=== PATIENT | male | born 1940 | race Caucasian/White ===

== ENCOUNTER 2019-05-30 09:44 | Outpatient (CLI) | payer MEDICARE, SELFPAY ==
[2019-05-30 10:04] LABS: Appearance Urine Clear (Clear); Bilirubin Urine Negative (Negative); Color Urine Yellow (Yellow); Glucose Urine UA Negative (Negative); Ketones Urine Negative (Negative); Leukocyte Esterase Ur Negative LEU/UL (Negative); Nitrate Urine Negative (Negative); Protein Urine Trace mg/dL (Negative); Urobilinogen Urine 0.2 mg/dL (<2.0)
[2019-05-30 10:10] LABS: Add Urine Microscopic? YES; Blood Urine Trace-Intact (Negative)
[2019-05-30 10:11] LABS: Mucus Urine Rare /lpf; RBC Urine 0-2 /hpf (0-2); Specific Grav Ur 1.022 (1.001-1.035); WBC Urine 0-3 /hpf
== END 2019-05-30 09:45 | disposition home or self-care (01) ==
PROVIDERS: PCP Internal Medicine; Visit Provider Nurse Practitioner
DX: R30.0 Dysuria (principal)
CPT/HCPCS: 81001

== ENCOUNTER 2019-08-24 10:10 | Outpatient (CLI) | payer MEDICARE, SELFPAY ==
[2019-08-24 11:21] LABS: Blood Urea Nitrogen 14 mg/dL (9-20); Calcium 9.1 mg/dL (8.4-10.2); Carbon Dioxide 31 mmol/L (22-30); Chloride 101 mmol/L (98-107); Estimated Glomerular Filt Rate > 60; Glucose 117 mg/dL (75-110); Potassium 4.2 mmol/L (3.4-5.0); Sodium 137 mmol/L (137-145)
[2019-08-24 11:44] LABS: Vitamin D 25 Hydroxy 50.9 ng/mL
== END 2019-08-24 10:11 | disposition home or self-care (01) ==
LOC: ANHLAB 10:12
PROVIDERS: PCP Internal Medicine; Visit Provider Nurse Practitioner
DX: E55.9 Vitamin D deficiency, unspecified (principal); I10 Essential (primary) hypertension
CPT/HCPCS: 36415; 80048; 82306

== ENCOUNTER 2020-01-24 09:02 | Outpatient (CLI) | payer MEDICARE, SELFPAY ==
[2020-01-24 09:29] LABS: Alanine Aminotransferase 19 U/L (4-50); Albumin Level 4.2 g/dL (3.5-5.1); Alkaline Phosphatase 68 U/L (38-126); Anion Gap 4 mmol/L (8-16); Aspartate Amino Transferase 23 U/L (17-59); Bilirubin,Total 0.5 mg/dL (0.2-1.3); Blood Urea Nitrogen 23 mg/dL (9-20); Calcium 9.1 mg/dL (8.4-10.2); Carbon Dioxide 34 mmol/L (22-30); Chloride 102 mmol/L (98-107); Cholesterol 229 mg/dL (0-200); Estimated Glomerular Filt Rate > 60; Glucose 92 mg/dL (75-110); HDL Direct 37 mg/dL; Sodium 140 mmol/L (137-145); Triglycerides 184 mg/dL (<150)
[2020-01-24 09:40] LABS: LDL Cholesterol Direct 171 mg/dL
[2020-01-24 10:15] LABS: Vitamin D 25 Hydroxy 52.2 ng/mL
== END 2020-01-24 09:03 | disposition home or self-care (01) ==
PROVIDERS: PCP Internal Medicine; Visit Provider Internal Medicine
DX: E78.5 Hyperlipidemia, unspecified (principal); Z51.81 Encounter for therapeutic drug level monitoring; Z79.899 Other long term (current) drug therapy; I10 Essential (primary) hypertension
CPT/HCPCS: 36415; 80053; 80061; 82306

== ENCOUNTER 2020-05-19 09:31 | Emergency (ER) | payer MEDICARE, SELFPAY ==
--- NOTE | ~2020-05-19 | XR_ITS ---
EXAMINATION: XR lumbar spine min 4V DATE: 05/19/2020 10:19 INDICATION: Back pain. TECHNIQUE: 5 views of lumbar spine were obtained. COMPARISON: Lumbar spine radiographs 09/08/2016 FINDINGS: There is 3 mm retrolisthesis of L1 on L2. There are changes of anterior fusion procedures a t L2-L3 and L3-L4 with interbody devices. There is mildly decreased disc height at L4-L5 and L5-S1 wi th disc calcifications. There is mildly decreased disc height at L1-L2. There are laminectomies at L3 and L5. There are changes of posterior fusion procedure from L3 to S1 with solid posterolateral bone graft on either side. There is multilevel moderate facet joint hypertrophy. There are surgical clips in the retroperitoneum. IMPRESSION: 1. Mild lumbar spondylosis. 2. Anterior fusion procedures at L2-L3 and L3-L4. Posterior fusion procedure from L3 to S1. Reviewed, dictated and finalized at location A. X DIPPER IMPRESSION: 1. Mild lumbar spondylosis. 2. Anterior fusion procedures at L2-L3 and L3-L4. Posterior fusion procedure fr om L3 to S1.
[2020-05-19 09:37] VITALS: BP 201/66; PULSE 78; RESP 20; TEMP 36.6; O2SAT 99
[2020-05-19 09:50] LABS: Add Urine Microscopic? NO; Appearance Urine Clear (Clear); Bilirubin Urine Negative (Negative); Blood Urine Negative (Negative); Color Urine Straw (Yellow); Glucose Urine UA Negative (Negative); Ketones Urine Negative (Negative); Leukocyte Esterase Ur Negative LEU/UL (Negative); Nitrate Urine Negative (Negative); Protein Urine Negative (Negative); Specific Grav Ur 1.009 (1.001-1.035); Squamous Epithelial Cell Urine Rare /hpf (Few); Urobilinogen Urine Negative mg/dL (<2.0); WBC Urine 0-3 /hpf
[2020-05-19] MEDS: traMADol HCL (*CRX) 50 MG TABLET PO (10:31)
--- NOTE | 2020-05-19 11:06 | ED.BACK ---
HPI - Back Pain/Injury General Chief Complaint: Urogenital-Male Stated Complaint: Back Pain, Frequent Urination Time Seen by Provider: 05/19/20 09:42 Source: patient Mode of arrival: ambulatory Limitations: no limitations History of Present Illness HPI Narrative: 79-year-old with history of chronic back pain, s/p lumbar fusion several years patient states that his pain has been quite intense since this morning has taken Tylenol with no relief patient also mentions he was shaking inside his body patient has seen pain management in the past. No history of bladder or bowel incontinence denies any urinary symptoms. MD elicited complaint: back pain Pertinent past history: prior back pain Timing: constant Severity: moderate Similar Symptoms Previously: Yes Quality: aching Location: lumbar spine Radiation: none Exacerbating factors: none Relieving factors: none Related Data Home Medications Medication Instructions Recorded Confirmed omeprazole 40 mg capsule,delayed 40 mg PO DAILY 01/21/19 02/22/20 release Allergies Allergy/AdvReac Type Severity Reaction Status Date / Time No Known Allergies Allergy Verified 05/19/20 09:39 Review of Systems Review of Systems: All systems reviewed & are unremarkable except as noted in HPI and below Constitutional: Constitutional: Reports no additional constitutional complaints Eyes: Eyes: Reports no additional eye complaints ENT: Reports system reviewed and no additional complaints, except as documented Cardiovascular: Cardiovascular: Reports no additional cardiovascular complaints Respiratory: Respiratory: Reports no additional respiratory complaints Gastrointestinal: Gastrointestinal: Reports no additional gastrointestinal complaints Musculoskeletal: Musculoskeletal: Reports as per HPI Integumentary/Breasts: Skin/Breast: Reports system reviewed and no additional complaints, except as docu PMFSH Past Medical History Medical History Rotator cuff arthropathy Surgical History Surgical History H/O colonoscopy (~2007) H/O prostate biopsy History of esophagogastroduodenoscopy (EGD) History of lumbar discectomy (~2005) History of lumbar discectomy (~2003) Family History Family History Father Family history of malignant neoplasm Patient's father is Mother Family history of malignant neoplasm Patient's mother is Social History Social History Smoking status: Former smoker Alcohol intake: never Gender identity (if verbalized by the patient): Male Exam Narrative: Exam Narrative: GENERAL: Well-appearing, well-nourished, and in no acute distress. HEAD: Normocephalic, atraumatic. EYES: PERRLA and EOMI.. NECK: Supple. CHEST: Clear to auscultation. No respiratory distress. HEART: Regular rate and rhythm. No murmur heard. Normal peripheral pulses. ABDOMEN: Soft, nontender, nondistended, normal active bowel sounds. EXTREMITIES: Normal range of motion. No edema. SKIN: Warm, dry, no rash. NEURO: No focal deficits. Alert and oriented x3. PSYCH: Normal mood and affect. Course Course Emergency Course: Inform patient about his x-ray and urine analysis. I advised him to continue to he states he will get, take pain medication I advised him to follow-up with his pain management doctor for long-term benefit patient states that his pain is slightly improved with tramadol. Patient states that he cannot take more than Tylenol as he has stomach issues. Vital Signs Vital signs: Vital Signs Temperature 36.6 C 05/19/20 09:37 Pulse Rate 78 05/19/20 09:37 Respiratory Rate 20 05/19/20 09:37 Blood Pressure 201/66 H 05/19/20 09:37 Pulse Oximetry 99 05/19/20 09:37 Temperature 36.6 C 05/19/20 09:37 Pulse Rate
[2020-05-19 11:40] VITALS: BP 188/90; PULSE 80; RESP 20; O2SAT 99
== END 2020-05-19 11:43 | disposition home or self-care (01) ==
PROVIDERS: Emergency Provider Family Medicine; PCP Internal Medicine
DX: M54.5 Low back pain (principal); G89.29 Other chronic pain; Z98.1 Arthrodesis status
CPT/HCPCS: 72110; 81003; 99283; A9270

== ENCOUNTER 2020-08-03 14:26 | Outpatient (CLI) | payer MEDICARE, SELFPAY ==
[2020-08-03 14:49] LABS: Add Urine Microscopic? YES; Appearance Urine Clear (Clear); Bilirubin Urine Negative (Negative); Blood Urine Negative (Negative); Color Urine Yellow (Yellow); Glucose Urine UA Negative (Negative); Ketones Urine Negative (Negative); Leukocyte Esterase Ur Negative LEU/UL (Negative); Mucus Urine Rare /lpf; Nitrate Urine Negative (Negative); Protein Urine 1+ mg/dL (Negative); RBC Urine 0-2 /hpf (0-2); Specific Grav Ur 1.019 (1.001-1.035); Squamous Epithelial Cell Urine Rare /hpf (Few); Urobilinogen Urine Negative mg/dL (<2.0); WBC Urine 0-3 /hpf
== END 2020-08-03 14:27 | disposition home or self-care (01) ==
PROVIDERS: PCP Internal Medicine; Visit Provider Nurse Practitioner
DX: M54.5 Low back pain (principal)
CPT/HCPCS: 81001

== ENCOUNTER 2020-08-13 06:40 | Outpatient (CLI) | payer MEDICARE, SELFPAY ==
[2020-08-13 07:50] LABS: Alanine Aminotransferase 14 U/L (4-50); Albumin Level 3.9 g/dL (3.5-5.1); Alkaline Phosphatase 64 U/L (38-126); Anion Gap 5 mmol/L (8-16); Aspartate Amino Transferase 21 U/L (17-59); Bilirubin,Total 0.6 mg/dL (0.2-1.3); Blood Urea Nitrogen 15 mg/dL (9-20); Calcium 9.2 mg/dL (8.4-10.2); Carbon Dioxide 30 mmol/L (22-30); Chloride 107 mmol/L (98-107); Cholesterol 234 mg/dL (0-200); Estimated Glomerular Filt Rate > 60; Glucose 90 mg/dL (75-110); HDL Direct 52 mg/dL; Potassium 4.1 mmol/L (3.4-5.0); Sodium 142 mmol/L (137-145); Triglycerides 73 mg/dL (<150)
[2020-08-13 08:01] LABS: LDL Cholesterol Direct 126 mg/dL
== END 2020-08-13 06:41 | disposition home or self-care (01) ==
PROVIDERS: PCP Internal Medicine; Visit Provider Nurse Practitioner
DX: E55.9 Vitamin D deficiency, unspecified (principal); E78.5 Hyperlipidemia, unspecified; E78.00 Pure hypercholesterolemia, unspecified
CPT/HCPCS: 36415; 80053; 80061; 82306

== ENCOUNTER 2020-09-24 01:41 | Day surgery (SDC) | payer MEDICARE, SELFPAY ==
[2020-09-11 09:28] VITALS: BMI 28.0
[2020-09-24 07:53] VITALS: BP 168/62; PULSE 50; RESP 18; TEMP 36; O2SAT 100
--- NOTE | 2020-09-24 07:53 | PM.HPGS ---
History of Present Illness History of Present Illness Consent: Risks, benefits, and alternatives have been discussed and questions answered. Patient agrees to proceed with procedure. Chief complaint: blood in stool Narrative: Radames Grider is a 79 year old male With recurrent rectal bleeding. He also suffers from severe constipation Review of Systems Review of Systems: All systems reviewed & are unremarkable except as noted in HPI and below PMFSH Past Medical History Medical History (Updated 09/24/20 @ 07:54 by Rigo Lubin MD) Rotator cuff arthropathy Surgical History Surgical History H/O colonoscopy (~2007) H/O prostate biopsy History of esophagogastroduodenoscopy (EGD) History of lumbar discectomy (~2005) History of lumbar discectomy (~2003) Family History Family History Father Family history of malignant neoplasm Patient's father is Mother Family history of malignant neoplasm Patient's mother is Social History Social History Smoking packs per day: 0.5 Smoking cigarettes per day: 10.0 Years smoked: 20 Smoking pack-years: 10.00 Smoking status: Former smoker Tobacco type: cigarettes Second hand tobacco smoke exposure: Yes Smoking end date: 03/09/84 Alcohol intake: never Living arrangements: alone Gender identity (if verbalized by the patient): Male Spiritual care concerns: No Meds Home Medications and Allergies Home Medications Medication Instructions Recorded Confirmed Type alprazolam 0.25 mg tablet 0.25 mg PO DAILY PRN #30 tablet 07/18/20 09/11/20 Rx lisinopril 10 0.5 tablet PO DAILY tablet 08/03/20 09/11/20 History mg-hydrochlorothiazide 12.5 mg tablet acetaminophen 650 mg PO Q4-6H PRN 09/11/20 09/24/20 History tramadol 50 mg tablet 50 mg PO Q8H PRN #60 tablet 09/11/20 09/24/20 Rx Allergies Allergy/AdvReac Type Severity Reaction Status Date / Time No Known Allergies Allergy Verified 09/24/20 07:51 Exam Const: General: alert Orientation/consciousness: patient oriented x3 Resp: Auscultation: clear to auscultation bilaterally Cardio: Rhythm: regular rhythm GI: GI Palp: Yes Soft to palpation and No Tenderness to palpation present (GI) Neuro: General: patient oriented x3 Assessment and Plan Assessment and plan (1) Blood in stool: Code(s): K92.1 - Melena Status: Acute Assessment and Plan: Colonoscopy with possible biopsy or polypectomy or cautery or injection of substances.
[2020-09-24] MEDS: LACTATED RINGERS 1,000 ML 150 ML IV CONT (08:05)
--- NOTE | 2020-09-24 08:40 | WPDANESEPPF ---
Anes - Initial Pre Proc Eval Procedure: Operation Date: 09/24/20 08:30 Proposed Procedures p Colonoscopy - Rigo Lubin MD Date/Time: 09/24/20 08:40 Surgeon: Rigo Lubin MD Pre Op Diagnosis: blood in stool Patient Data Age: 79 Gender: M Height: 1.68 m Weight: 81.1 kg Last Vital Signs Temp 96.8 F L 09/24/20 07:53 Pulse 50 L 09/24/20 07:53 Resp 18 09/24/20 07:53 BP 168/62 H 09/24/20 07:53 Pulse Ox 100 09/24/20 07:53 Allergies Allergy/AdvReac Type Severity Reaction Status Date / Time No Known Allergies Allergy Verified 09/24/20 07:51 Home Medications Medication Instructions Recorded Confirmed Type alprazolam 0.25 mg tablet 0.25 mg PO DAILY PRN #30 tablet 07/18/20 09/11/20 Rx lisinopril 10 0.5 tablet PO DAILY tablet 08/03/20 09/11/20 History mg-hydrochlorothiazide 12.5 mg tablet acetaminophen 650 mg PO Q4-6H PRN 09/11/20 09/24/20 History tramadol 50 mg tablet 50 mg PO Q8H PRN #60 tablet 09/11/20 09/24/20 Rx Patient hx anesthesia problems: none Family hx anesthesia problems: none PMFSH Past Medical History Medical History (Updated 09/24/20 @ 07:54 by Rigo Lubin MD) Rotator cuff arthropathy Surgical History Surgical History H/O colonoscopy (~2007) H/O prostate biopsy History of esophagogastroduodenoscopy (EGD) History of lumbar discectomy (~2005) History of lumbar discectomy (~2003) Family History Family History Father Family history of malignant neoplasm Patient's father is Mother Family history of malignant neoplasm Patient's mother is Social History Social History Smoking packs per day: 0.5 Smoking cigarettes per day: 10.0 Years smoked: 20 Smoking pack-years: 10.00 Smoking status: Former smoker Tobacco type: cigarettes Second hand tobacco smoke exposure: Yes Smoking end date: 03/09/84 Alcohol intake: never Living arrangements: alone Gender identity (if verbalized by the patient): Male Spiritual care concerns: No Anes - Eval Final PreProcedure Day of Procedure 09/24/20 08:40 Patient weight: overweight Heart: bradycardia Lungs: clear to auscultation Airway: Mallampati scale class II Neurological: alert and oriented Last oral intake: >/= 8 hours ASA classification: III Emergent: no Anesthetic plan: proceed Anesthesia type and monitoring: general GIVS and standard monitoring Informed Consent: The patient's anesthetic plan and its attendant risks and benefits were discussed with the patient/family/POA. Questions were solicited and answers provided to the satisfaction of the patient/family/POA.
[2020-09-24 09:06] VITALS: BP 85/38; PULSE 53; RESP 16; O2SAT 97
[2020-09-24 09:16] VITALS: BP 125/55; PULSE 52; RESP 21; O2SAT 98
[2020-09-24 09:26] VITALS: BP 134/56; PULSE 50; RESP 20; O2SAT 100
== END 2020-09-24 09:40 | disposition home or self-care (01) ==
PROVIDERS: PCP Internal Medicine; Visit Provider Internal Medicine Gastroenterology
PROC: 0DJD8ZZ Inspection of Lower Intestinal Tract, Via Natural or Artificial Opening Endoscopic (ICD-10-PCS; CPT 45378; principal; 2020-09-24 08:30)
DX: K92.1 Melena (principal); K63.5 Polyp of colon; K59.00 Constipation, unspecified; K57.30 Diverticulosis of large intestine without perforation or abscess without bleeding; K64.8 Other hemorrhoids; Z87.891 Personal history of nicotine dependence
CPT/HCPCS: 45380; 88305; J2704; J7120

== ENCOUNTER 2021-02-18 06:55 | Outpatient (CLI) | payer MEDICARE, SELFPAY ==
[2021-02-18 07:37] LABS: Alanine Aminotransferase 16 U/L (4-50); Alkaline Phosphatase 75 U/L (38-126); Anion Gap 4 mmol/L (8-16); Aspartate Amino Transferase 23 U/L (17-59); Bilirubin,Total 0.6 mg/dL (0.2-1.3); Blood Urea Nitrogen 19 mg/dL (9-20); Carbon Dioxide 33 mmol/L (22-30); Chloride 103 mmol/L (98-107); Cholesterol 231 mg/dL (0-200); Estimated Glomerular Filt Rate > 60; Glucose 97 mg/dL (65-110); HDL Direct 44 mg/dL; Potassium 4.2 mmol/L (3.4-5.0); Sodium 140 mmol/L (137-145)
[2021-02-18 07:47] LABS: LDL Cholesterol Direct 152 mg/dL
[2021-02-18 07:52] LABS: Triglycerides 109 mg/dL (<150)
[2021-02-18 08:04] LABS: Vitamin D 25 Hydroxy 44.3 ng/mL
== END 2021-02-18 06:56 | disposition home or self-care (01) ==
PROVIDERS: PCP Internal Medicine; Visit Provider Internal Medicine
DX: E55.9 Vitamin D deficiency, unspecified (principal); E78.2 Mixed hyperlipidemia; E78.5 Hyperlipidemia, unspecified; I10 Essential (primary) hypertension
CPT/HCPCS: 36415; 80053; 80061; 82306

== ENCOUNTER 2021-08-28 06:35 | Outpatient (CLI) | payer MEDICARE, SELFPAY ==
[2021-08-28 07:52] LABS: Alanine Aminotransferase 13 U/L (6-50); Albumin Level 4.3 g/dL (3.5-5.1); Alkaline Phosphatase 76 U/L (38-126); Anion Gap 4 mmol/L (8-16); Aspartate Amino Transferase 21 U/L (17-59); Bilirubin,Total 0.5 mg/dL (0.2-1.3); Blood Urea Nitrogen 21 mg/dL (9-20); Calcium 8.7 mg/dL (8.4-10.2); Carbon Dioxide 32 mmol/L (22-30); Chloride 102 mmol/L (98-107); Cholesterol 258 mg/dL (0-200); Estimated Glomerular Filt Rate > 60; Glucose 94 mg/dL (65-110); HDL Direct 47 mg/dL; Potassium 4.5 mmol/L (3.4-5.0); Sodium 138 mmol/L (137-145); Triglycerides 63 mg/dL (<150)
[2021-08-28 08:03] LABS: LDL Cholesterol Direct 179 mg/dL
== END 2021-08-28 06:36 | disposition home or self-care (01) ==
LOC: ANHLAB 06:40
PROVIDERS: PCP Internal Medicine; Visit Provider Nurse Practitioner
DX: E78.5 Hyperlipidemia, unspecified (principal); I10 Essential (primary) hypertension
CPT/HCPCS: 36415; 80053; 80061

== ENCOUNTER 2022-02-24 11:48 | Outpatient (CLI) | payer MEDICARE, SELFPAY ==
[2022-02-24 12:31] LABS: Alanine Aminotransferase 17 U/L (6-50); Albumin Level 4.3 g/dL (3.5-5.1); Alkaline Phosphatase 73 U/L (38-126); Anion Gap 6 mmol/L (8-16); Aspartate Amino Transferase 25 U/L (17-59); Bilirubin,Total 0.3 mg/dL (0.2-1.3); Blood Urea Nitrogen 15 mg/dL (9-20); Calcium 8.6 mg/dL (8.4-10.2); Carbon Dioxide 31 mmol/L (22-30); Chloride 99 mmol/L (98-107); Cholesterol 187 mg/dL (0-200); Estimated Glomerular Filt Rate > 60; Glucose 115 mg/dL (65-110); HDL Direct 54 mg/dL; Potassium 3.9 mmol/L (3.4-5.0); Sodium 136 mmol/L (137-145); Triglycerides 64 mg/dL (<150)
[2022-02-24 12:43] LABS: LDL Cholesterol Direct 96 mg/dL
[2022-02-24 13:09] LABS: Vitamin D 25 Hydroxy 49.5 ng/mL
== END 2022-02-24 11:49 | disposition home or self-care (01) ==
LOC: ANHLAB 11:50
PROVIDERS: PCP Nurse Practitioner; Visit Provider Nurse Practitioner
DX: E78.2 Mixed hyperlipidemia (principal); E55.9 Vitamin D deficiency, unspecified
CPT/HCPCS: 36415; 80053; 80061; 82306

== ENCOUNTER 2022-03-13 14:04 | Outpatient (CLI) | payer MEDICARE, SELFPAY ==
--- NOTE | ~2022-03-13 | XR_ITS ---
XR ribs LT 2V w CXR 2V DATE: 03/13/2022 14:38 INDICATION: Left rib pain TECHNIQUE: PA and lateral chest 3 views of the left ribs COMPARISON: None FINDINGS: Normal heart size. Aortic calcification and minimal unfolding. No hilar or mediastinal enla rgement. No pulmonary infiltrate or consolidation, pleural effusion or pulmonary vascular congestion or pneumo thorax. Degenerative spurring of the thoracic spine. No left rib fracture or bone destruction is detected. Degenerative spurring of the thoracic spine. Incidentally noted is lumbar laminectomy and surgical fusion at the mid and lower lumbar spine. Severe degenerative disc disease at L1-2. IMPRESSION: No left rib fracture or bone destruction Osteopenia Degenerative changes of the thoracic and lumbar spine. Laminectomy and surgical fusion of the lumbar spine Reviewed, dictated and finalized at location A. FITS COORDINATOR
== END 2022-03-13 14:05 | disposition home or self-care (01) ==
PROVIDERS: PCP Internal Medicine; Visit Provider Nurse Practitioner Family
DX: L98.9 Disorder of the skin and subcutaneous tissue, unspecified (principal); R07.89 Other chest pain; M85.88 Other specified disorders of bone density and structure, other site; Z98.1 Arthrodesis status
CPT/HCPCS: 71046; 71100

== ENCOUNTER 2022-04-18 08:50 | Outpatient (CLI) | payer MEDICARE, SELFPAY ==
[2022-04-18 09:33] LABS: Basophils Percent Auto 0.3 % (0.2-1.2); Eosinophils Absolute Auto 0.1 K/mm3 (0-0.3); Eosinophils Percent Auto 1.4 % (0-4.4); Immature Granulocyte Absolute 0.02 K/mm3 (0.00-0.031); Immature Granulocyte Percent A 0.3 % (0-0.5); Lymphocytes Absolute Auto 2.05 K/mm3 (0.9-3.2); Lymphocytes Percent Auto 32.4 % (18.3-44.2); Mean Corpuscular HGB Conc 33.3 g/dl (32-36); Mean Corpuscular Hemoglobin 31.2 pg (26-34); Mean Corpuscular Volume 93.5 fl (80-100); Mean Platelet Volume 9.9 fl (7.4-10.4); Monocytes Absolute Auto 0.4 K/mm3 (0.1-0.6); Monocytes Percent Auto 6.5 % (2.6-8.5); Neutrophils Absolute Auto 3.7 K/mm3 (1.3-6.7); Neutrophils Percent Auto 59.1 % (45.5-73.1); Platelet Count Result 216 k/mm3 (150-375); Red Blood Count 4.49 M/mm3 (4.6-6.20); Red Cell Distribution Width 13.3 % (11.5-14.5); White Blood Count 6.3 K/mm3 (4.5-10.0)
== END 2022-04-18 08:51 | disposition home or self-care (01) ==
PROVIDERS: PCP Internal Medicine; Visit Provider Internal Medicine Gastroenterology
DX: K57.92 Diverticulitis of intestine, part unspecified, without perforation or abscess without bleeding (principal)
CPT/HCPCS: 36415; 85025

== ENCOUNTER 2022-06-25 13:48 | Outpatient (CLI) | payer MEDICARE, SELFPAY ==
[2022-06-25 14:27] LABS: Alanine Aminotransferase 20 U/L (6-50); Albumin Level 4.3 g/dL (3.5-5.1); Alkaline Phosphatase 82 U/L (38-126); Anion Gap 2 mmol/L (8-16); Aspartate Amino Transferase 30 U/L (17-59); Bilirubin,Total 0.7 mg/dL (0.2-1.3); Blood Urea Nitrogen 17 mg/dL (9-20); Calcium 8.5 mg/dL (8.4-10.2); Carbon Dioxide 35 mmol/L (22-30); Chloride 98 mmol/L (98-107); Estimated Glomerular Filt Rate > 60; Glucose 125 mg/dL (65-110); Potassium 3.6 mmol/L (3.4-5.0); Sodium 135 mmol/L (137-145)
== END 2022-06-25 13:49 | disposition home or self-care (01) ==
PROVIDERS: PCP Family Medicine; Visit Provider Nurse Practitioner Family
DX: I10 Essential (primary) hypertension (principal)
CPT/HCPCS: 36415; 80053

== ENCOUNTER 2022-07-14 07:51 | Outpatient (CLI) | payer MEDICARE, SELFPAY ==
--- NOTE | ~2022-07-14 | XR_ITS ---
XR sacroiliac joints min 3V 07/14/2022 08:30 Indication: Back pain. Procedure: Three-view sacroiliac joints Comparison: 09/08/2016 Findings: There is mild symmetric degenerative change of the sacroiliac joints. Pelvic rings are inta ct. Mild symmetric osteoarthritis of the hips. There are laminectomy changes of the lower lumbar spin e. Sacral foramen are symmetric. No acute bone or joint abnormality. Impression: 1: Stable mild symmetric degenerative changes of the sacroiliac joints. Reviewed, dictated and finalized at location B. Impression: 1: Stable mild symmetric degenerative changes of the sacroiliac joints.
--- NOTE | ~2022-07-14 | XR_ITS ---
XR lumbar spine 2-3V 07/14/2022 08:30 Indication: Back pain. Procedure: 3 views lumbar spine Comparison: 05/19/2020 Findings: There is subtle retrolisthesis at L1-2. There are changes of anterior fusion with interbody devices at L2-3 and L3-4. There are laminectomies at L3-L5 with lateral bone fusion mass at L4-5. No acute fracture, subluxation or dislocation. There is moderate multilevel facet hypertrophy. No acute fracture or traumatic malalignment. Impression: 1: Moderate lumbar spondylosis with postsurgical fusion changes described above, unchanged from prior examination. Reviewed, dictated and finalized at location B. Impression: 1: Moderate lumbar spondylosis with postsurgical fusion changes described above , unchanged from prior examination.
[2022-07-14 08:37] LABS: Hemoglobin A1C 5.5 % (<5.7)
== END 2022-07-14 07:52 | disposition home or self-care (01) ==
PROVIDERS: PCP Family Medicine; Visit Provider Family Medicine
DX: M47.816 Spondylosis without myelopathy or radiculopathy, lumbar region (principal); I10 Essential (primary) hypertension; I70.0 Atherosclerosis of aorta; K57.90 Diverticulosis of intestine, part unspecified, without perforation or abscess without bleeding; F41.0 Panic disorder [episodic paroxysmal anxiety]; F41.9 Anxiety disorder, unspecified; G25.0 Essential tremor; K21.9 Gastro-esophageal reflux disease without esophagitis; Z85.46 Personal history of malignant neoplasm of prostate; Z12.5 Encounter for screening for malignant neoplasm of prostate
CPT/HCPCS: 36415; 72100; 72202; 83036; 84153; G0103

== ENCOUNTER 2023-02-26 15:26 | Outpatient (CLI) | payer MEDICARE, SELFPAY ==
[2023-02-26 15:47] LABS: Hematocrit 38.9 % (42.0-52.0); Hemoglobin 12.6 g/dL (14.0-18.0); Mean Corpuscular HGB Conc 32.4 g/dl (32-36); Mean Corpuscular Volume 95.8 fl (80-100); Mean Platelet Volume 10.1 fl (7.4-10.4); Platelet Count Result 191 k/mm3 (150-375); Red Blood Count 4.06 M/mm3 (4.6-6.20); Red Cell Distribution Width 13.7 % (11.5-14.5); White Blood Count 5.7 K/mm3 (4.5-10.0)
[2023-02-26 16:09] LABS: Alanine Aminotransferase 14 U/L (6-50); Albumin Level 4.1 g/dL (3.5-5.1); Alkaline Phosphatase 77 U/L (38-126); Anion Gap 5 mmol/L (8-16); Aspartate Amino Transferase 29 U/L (17-59); Bilirubin,Total 0.6 mg/dL (0.2-1.3); Blood Urea Nitrogen 16 mg/dL (9-20); Carbon Dioxide 26 mmol/L (22-30); Chloride 105 mmol/L (98-107); Cholesterol 192 mg/dL (0-200); Estimated Glomerular Filt Rate > 60; Glucose 99 mg/dL (65-110); HDL Direct 46 mg/dL; Potassium 4.4 mmol/L (3.4-5.0); Sodium 136 mmol/L (137-145); Triglycerides 67 mg/dL (<150)
[2023-02-26 16:20] LABS: LDL Cholesterol Direct 115 mg/dL
[2023-02-26 16:38] LABS: Prostate Specific Antigen 1.1 ng/mL (< OR = 4.0)
[2023-02-26 17:50] LABS: Vitamin D 25 Hydroxy 32.5 ng/mL
== END 2023-02-26 15:27 | disposition home or self-care (01) ==
LOC: ANHLAB 15:26
PROVIDERS: PCP Family Medicine; Visit Provider Family Medicine
DX: Z12.5 Encounter for screening for malignant neoplasm of prostate (principal); E55.9 Vitamin D deficiency, unspecified; E78.5 Hyperlipidemia, unspecified; I10 Essential (primary) hypertension; K21.9 Gastro-esophageal reflux disease without esophagitis; N40.0 Benign prostatic hyperplasia without lower urinary tract symptoms; Z86.19 Personal history of other infectious and parasitic diseases; Z85.46 Personal history of malignant neoplasm of prostate
CPT/HCPCS: 36415; 80053; 80061; 82306; 84153; 85027; G0103

== ENCOUNTER 2023-03-10 15:09 | Outpatient (CLI) | payer MEDICARE, SELFPAY ==
[2023-03-10 16:23] LABS: Iron 141 ug/dL (49-181)
[2023-03-10 16:33] LABS: Percent Iron Saturation 63 % (20-50)
== END 2023-03-10 15:10 | disposition home or self-care (01) ==
LOC: ANHLAB 15:10
PROVIDERS: PCP Family Medicine; Visit Provider Family Medicine
DX: K30 Functional dyspepsia (principal); D64.9 Anemia, unspecified
CPT/HCPCS: 36415; 82607; 82728; 83540; 83550

== ENCOUNTER 2023-03-15 11:43 | Outpatient (CLI) | payer OTHER, MEDICARE, SELFPAY ==
--- NOTE | ~2023-03-15 | MR_ITS ---
MRI of the lumbar spine Clinical History: Weakness Technique: Axial T2-weighted images, and sagittal T1-weighted, T2-weighted, and T2 fat-sat images wer e acquired. Findings: There is no acute fracture or subluxation lumbar spine. There are interbody fusion devices at the L2-L3 L3-L4 disc spaces. There is additional probable at least partial fusion across the L4-L5 disc space. No suspicious bone marrow signal abnormality seen. At L1-L2, there is minimal disc bulge with mild to moderate facet arthropathy. No central canal steno sis. There is moderate right neural foraminal narrowing. Left neural foramen preserved. At L2-L3, there is mild osteophyte complex posteriorly with mild to moderate facet arthropathy. No ce ntral canal stenosis. There is moderate right neural foraminal narrowing. Left neural foramen is mini she narrowed. L3-L4, there is osteophyte complex without tirso canal stenosis. There is moderate facet arthropathy. There is moderate bilateral neural foraminal narrowing. At L4-L5, there is no disc bulge or herniation. There is facet joint effusion. No spinal canal stenos is. There is preservation neural foramina. At L5-S1, there is no disc bulge or herniation. No central canal stenosis. Probable minimal bilateral neural foraminal narrowing. Paravertebral soft tissues are unremarkable. Impression: Postfusion changes, as above. Mild degenerative spondylosis, as above. Reviewed, dictated and finalized at [facility]. R EDITOR Impression: Postfusion changes, as above. Mild degenerative spondylosis, as above.
== END 2023-03-15 11:44 | disposition home or self-care (01) ==
PROVIDERS: PCP Family Medicine; Visit Provider Family Medicine
DX: R53.1 Weakness (principal); M47.896 Other spondylosis, lumbar region
CPT/HCPCS: 72148

== ENCOUNTER 2023-03-16 13:25 | Outpatient (CLI) | payer MEDICARE, SELFPAY ==
[2023-03-16 15:33] LABS: IFOB Positive Control Positive; Immunochemical Fecal Occult Bl Positive (N)
== END 2023-03-16 13:26 | disposition home or self-care (01) ==
LOC: ANHLAB 13:26
PROVIDERS: PCP Family Medicine; Visit Provider Family Medicine
DX: D64.9 Anemia, unspecified (principal)
CPT/HCPCS: 82274

== ENCOUNTER 2023-07-30 11:56 | Outpatient (CLI) | payer MEDICARE, SELFPAY ==
--- NOTE | ~2023-07-30 | XR_ITS ---
Lumbosacral Spine: AP and lateral views Clinical History: Pain COMPARISON: 07/14/2022 Findings: Stable fusion changes extending from L2 through L4. Advanced degenerative disc narrowing at L4-L5 and L5-S1 again present. Stable severe facet arthropathy and fusion from L2 through S1. The sa croiliac joints are normally outlined. Impression: Stable post fusion and degenerative changes, as noted above. Reviewed, dictated and finalized at location M. Impression: Stable post fusion and degenerative changes, as noted above.
--- NOTE | ~2023-07-30 | XR_ITS ---
EXAMINATION: XR ribs RT 2V DATE: 07/30/2023 12:25 INDICATION: Right chest pain. TECHNIQUE: 2 views of the right ribs on 3 radiographs were obtained. COMPARISON: Chest radiograph 03/13/2022 FINDINGS: There is no right-sided pneumonia, pleural effusion, or pneumothorax. The heart size is nor mal. There are changes of anterior fusion procedures in lumbar spine. There is an old healed fracture of right third rib. IMPRESSION: 1. No acute rib fracture. Reviewed, dictated and finalized at location A. IMPRESSION: 1. No acute rib fracture.
--- NOTE | ~2023-07-30 | XR_ITS ---
EXAMINATION: XR pelvis min 3V DATE: 07/30/2023 12:25 INDICATION: Right pelvic pain. Radiculopathy. TECHNIQUE: 3 views of the pelvis for obtained. COMPARISON: Sacroiliac joint radiographs 07/14/2022 FINDINGS: Bone alignment is normal. No fracture. There are changes of anterior fusion procedures in l umbar spine. There is moderate osteoarthritis of the hips. IMPRESSION: 1. Moderate osteoarthritis of the hips. Reviewed, dictated and finalized at location A.
== END 2023-07-30 11:57 | disposition home or self-care (01) ==
PROVIDERS: PCP Family Medicine; Visit Provider Family Medicine
DX: M54.10 Radiculopathy, site unspecified (principal); M16.0 Bilateral primary osteoarthritis of hip; Z98.1 Arthrodesis status
CPT/HCPCS: 71100; 72100; 72190

== ENCOUNTER 2023-09-16 11:05 | Outpatient (CLI) | payer MEDICARE, SELFPAY ==
[2023-09-16 11:48] LABS: Hemoglobin 13.8 g/dL (14.0-18.0); Mean Corpuscular HGB Conc 32.9 g/dl (32-36); Mean Corpuscular Hemoglobin 31.1 pg (26-34); Mean Corpuscular Volume 94.6 fl (80-100); Mean Platelet Volume 9.8 fl (7.4-10.4); Platelet Count Result 202 k/mm3 (150-375); Red Blood Count 4.44 M/mm3 (4.6-6.20); Red Cell Distribution Width 12.8 % (11.5-14.5); White Blood Count 5.9 K/mm3 (4.5-10.0)
[2023-09-16 11:58] LABS: Alanine Aminotransferase 13 U/L (6-50); Albumin Level 4.5 g/dL (3.5-5.1); Alkaline Phosphatase 89 U/L (38-126); Anion Gap 7 mmol/L (4-12); Aspartate Amino Transferase 24 U/L (17-59); Bilirubin,Total 0.7 mg/dL (0.2-1.3); Blood Urea Nitrogen 11 mg/dL (9-20); Calcium 9.1 mg/dL (8.4-10.2); Carbon Dioxide 31 mmol/L (22-30); Chloride 102 mmol/L (98-107); Estimated Glomerular Filt Rate > 60; Glucose 96 mg/dL (65-110); Potassium 4.6 mmol/L (3.4-5.0); Sodium 140 mmol/L (137-145)
== END 2023-09-16 11:06 | disposition home or self-care (01) ==
PROVIDERS: PCP Family Medicine; Visit Provider Family Medicine
DX: M54.50 Low back pain, unspecified (principal); M54.10 Radiculopathy, site unspecified; E78.5 Hyperlipidemia, unspecified; D64.9 Anemia, unspecified; E78.00 Pure hypercholesterolemia, unspecified
CPT/HCPCS: 36415; 80053; 85027

== ENCOUNTER 2023-09-29 21:06 | Emergency (ER) | payer MEDICARE, SELFPAY ==
--- NOTE | ~2023-09-29 | XR_ITS ---
EXAMINATION: XR chest 2V Exam Date/Time: 09/29/2023 21:29 CDT HISTORY: sob Comparison: 03/13/2022. RESULT: Lines, tubes, and devices: Interbody devices in the lumbar spine. Surgical clips over the midline lo wer abdomen/L spine.. Lungs and pleura: Mild diffuse reticulonodular opacities, most notably in the peripheral right lung. Cardiomediastinal silhouette: Stable. Other: No acute osseous or upper abdominal finding. IMPRESSION: Pulmonary opacities may represent respiratory vasculitis in the appropriate clinical context. Reviewed, dictated and finalized at location K. IMPRESSION: Pulmonary opacities may represent respiratory vasculitis in the appropriate cli nical context.
--- NOTE | ~2023-09-29 | CT_ITS ---
EXAMINATION: CTA chest abdomen pelvis DATE: 09/30/2023 02:00 INDICATION: Dyspnea with abdominal pain. TECHNIQUE: Computed tomographic angiography (CTA) of the chest, abdomen and pelvis was performed with out and with 100 mL Omnipaque-350 intravenous contrast. Volume-rendered 3D-reconstructions of the aor ta and large arteries were constructed by the technologist on a separate workstation. Automated expos ure control and iterative reconstruction technique were employed. The dose-length product was 603.39 mGy-cm. COMPARISON: None. FINDINGS: Chest: Although not performed as a dedicated pulmonary embolism protocol there is adequate contrast opacific ation of the pulmonary arteries demonstrating no pulmonary embolism. Minimal atelectasis in the depen dent lungs. No pneumonia, pulmonary edema, pleural effusion or pneumothorax. Heart size is normal. Sm all amount of atherosclerotic coronary artery calcification. Aortic valve ossification. No pericardia l effusion. Thoracic aorta is normal in caliber with no aneurysm or dissection but with small amount of ulcerated atherosclerotic plaque along the inferior arch opposite from the takeoff of the left sub clavian artery. Additional scattered atherosclerotic plaque without hemodynamic significant stenosis along the arteries arising from the arch. Mild ectasia of the right subclavian artery immediately dis wisam to a kink at the origin of the artery. Calcified right hilar and mediastinal lymph nodes consiste nt with old granulomatous disease. No pathologically enlarged thoracic lymphadenopathy. Abdomen and pelvis: Liver, gallbladder, spleen, pancreas, bilateral adrenal glands are normal. Bilateral renal cysts the largest on the right measuring 2.8 cm. Small bowel and appendix are normal. There is moderate colonic diverticulosis with descending and sigmoid colon predominance without adjacent inflammatory change t o suggest diverticulitis. Bladder is normal. No free intraperitoneal gas or fluid. No pathologically enlarged abdominal or pelvic lymphadenopathy. Abdominal aorta is normal in caliber with ulcerated ath erosclerotic plaque with associated short dissection with small intimal flap seen at the left side of the more cephalad infrarenal aorta and along the right anterior margin of the distal infrarenal aort a. Postoperative change of L3 and L5 laminectomies and partial L4 laminectomy with instrumented L2-L4 anterior spinal fusions. Bone graft harvest sites at the bilateral posterior iliac spines. IMPRESSION: 1. Atherosclerotic disease of the aorta which is normal in caliber but with penetrating atherosclerot ic ulcer at the arch and a couple short dissections with small intimal flaps along the infrarenal aor ta. Dr. Krishnan discussed these findings with Dr. Fine at 8:10 AM. Reviewed, dictated and finalized at location A. IMPRESSION: 1. Atherosclerotic disease of the aorta which is normal in caliber but with pen etrating atherosclerotic ulcer at the arch and a couple short dissections with small intimal flaps along the infrarenal aorta. Dr. Krishnan discussed these fi ndings with Dr. Fine at 8:10 AM.
[2023-09-29 21:07] VITALS: BP 201/95; PULSE 115; RESP 24; TEMP 36.7; O2SAT 98
--- NOTE | 2023-09-29 21:07 | ECG_ITS ---
Test Date: 2023-09-29 21:21:26 Measurements Intervals [place] Rate: 84 P: 5 MA: 151 QRS: -10 QRSD: 98 T: -2 QT: 391 QTc: 464 Interpretive Statements SINUS RHYTHM VOLTAGE CRITERIA FOR LVH BORDERLINE T WAVE ABNORMALITY- INFERIOR LEADS BASELINE ARTIFACT- I, II, III, AVR, AVL, AVF BORDERLINE ECG No previous ECG available for comparison Electronically Signed On 09-30-2023 06:26:40 CDT by Armando Jacques D.O.
[2023-09-29 21:25] LABS: Basophils Percent Auto 0.4 % (0.2-1.2); Eosinophils Absolute Auto 0.1 K/mm3 (0-0.3); Eosinophils Percent Auto 1.2 % (0-4.4); Hematocrit 42.1 % (42.0-52.0); Hemoglobin 14.4 g/dL (14.0-18.0); Immature Granulocyte Absolute 0.01 K/mm3 (0.00-0.031); Immature Granulocyte Percent A 0.1 % (0-0.5); Lymphocytes Absolute Auto 2.52 K/mm3 (0.9-3.2); Mean Corpuscular HGB Conc 34.2 g/dl (32-36); Mean Corpuscular Hemoglobin 31.6 pg (26-34); Mean Corpuscular Volume 92.3 fl (80-100); Mean Platelet Volume 9.5 fl (7.4-10.4); Monocytes Absolute Auto 0.5 K/mm3 (0.1-0.6); Monocytes Percent Auto 7.5 % (2.6-8.5); Neutrophils Percent Auto 55.8 % (45.5-73.1); Platelet Count Result 194 k/mm3 (150-375); Red Blood Count 4.56 M/mm3 (4.6-6.20); Red Cell Distribution Width 12.8 % (11.5-14.5); White Blood Count 7.2 K/mm3 (4.5-10.0)
[2023-09-29 21:35] LABS: Alanine Aminotransferase 17 U/L (6-50); Albumin Level 4.5 g/dL (3.5-5.1); Alkaline Phosphatase 82 U/L (38-126); Anion Gap 11 mmol/L (4-12); Aspartate Amino Transferase 29 U/L (17-59); Bilirubin,Total 0.5 mg/dL (0.2-1.3); Blood Urea Nitrogen 12 mg/dL (9-20); Calcium 9.2 mg/dL (8.4-10.2); Carbon Dioxide 24 mmol/L (22-30); Chloride 102 mmol/L (98-107); Estimated CRCL calculation 44 ml/min; Estimated Glomerular Filt Rate > 60; Glucose 118 mg/dL (65-110); Sodium 137 mmol/L (137-145)
[2023-09-30 01:35] VITALS: BP 185/101; PULSE 64; PULSE 69; RESP 20; O2SAT 100
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
== END 2023-09-30 05:48 | disposition home or self-care (01) ==
PROVIDERS: Emergency Provider Emergency Medicine; PCP Family Medicine
DX: F03.90 Unspecified dementia, unspecified severity, without behavioral disturbance, psychotic disturbance, mood disturbance, and anxiety (principal); K52.9 Noninfective gastroenteritis and colitis, unspecified; E78.5 Hyperlipidemia, unspecified; I10 Essential (primary) hypertension; Z87.891 Personal history of nicotine dependence
CPT/HCPCS: 36415; 71046; 71275; 74174; 80053; 85025; 93005; 99284; Q9967

== ENCOUNTER 2023-10-06 14:44 | Outpatient (CLI) | payer MEDICARE, SELFPAY ==
[2023-10-06 15:10] LABS: Appearance Urine Clear (Clear); Bilirubin Urine Negative (Negative); Blood Urine Negative (Negative); Color Urine Yellow (Yellow); Glucose Urine UA Negative (Negative); Ketones Urine Negative (Negative); Leukocyte Esterase Ur Negative LEU/UL (Negative); Nitrate Urine Negative (Negative); Protein Urine Negative (Negative); Specific Grav Ur 1.008 (1.001-1.035); Urobilinogen Urine 0.2 mg/dL (<2.0)
[2023-10-06 15:13] LABS: Add Urine Microscopic? NO
== END 2023-10-06 14:45 | disposition home or self-care (01) ==
LOC: ANHLAB 14:48
PROVIDERS: PCP Family Medicine; Visit Provider Family Medicine
DX: N40.0 Benign prostatic hyperplasia without lower urinary tract symptoms (principal); R06.00 Dyspnea, unspecified; R53.83 Other fatigue; R19.8 Other specified symptoms and signs involving the digestive system and abdomen
CPT/HCPCS: 36415; 81003; 84443; 87086

== ENCOUNTER 2023-10-14 15:07 | Outpatient (CLI) | payer MEDICARE, SELFPAY ==
--- NOTE | ~2023-10-14 | US_ITS ---
EXAMINATION: US aorta DATE: 10/15/2023 08:25 CDT INDICATION: Aortic aneurysm. High cholesterol. Hypertension. TECHNIQUE: Grayscale, color Doppler, and pulsed Doppler images of the aorta and common iliac arteries were obtained. COMPARISON: None. FINDINGS: The proximal aorta measures 2 cm greatest sagittal dimension. The mid aorta measures 2.6 cm greatest sagittal dimension. The distal aorta measures 2 cm greatest sagittal dimension. The right common inte rnal iliac artery measures 1 cm. The left common iliac artery measures 1.2 cm. IMPRESSION: 1. Atherosclerosis of the aorta without aneurysm. Reviewed, dictated and finalized at location B.
== END 2023-10-14 15:08 | disposition home or self-care (01) ==
LOC: ANHIMG 15:13
PROVIDERS: PCP Family Medicine; Visit Provider Family Medicine
DX: I70.0 Atherosclerosis of aorta (principal)
CPT/HCPCS: 76775

== ENCOUNTER 2024-04-04 12:16 | Outpatient (CLI) | payer MEDICARE, SELFPAY ==
[2024-04-04 12:40] LABS: Add Urine Microscopic? NO; Appearance Urine Clear (Clear); Bilirubin Urine Negative (Negative); Blood Urine Negative (Negative); Color Urine Yellow (Yellow); Glucose Urine UA Negative (Negative); Ketones Urine Negative (Negative); Leukocyte Esterase Ur Negative LEU/UL (Negative); Nitrate Urine Negative (Negative); Protein Urine Negative (Negative); Specific Grav Ur 1.008 (1.001-1.035); Urobilinogen Urine 0.2 mg/dL (<2.0)
--- OUTSIDE RECORDS SUMMARY | 2024-04-04 12:55 | XMS_ITS | Encounter Summary ---
Author Organization [facility] Address [address] [place] [address] Care Team Providers Care Engraver Letter Name Role Phone Unavailable Primary Care Provider Unavailabl e Encounter Details Date Type Department Care Team (Late st Contact Info) Description 08/07/1998 Outpatient Historical [facility] NO ADDRESS ON FILE Social History Tobacco Use Types Packs/Day Years Used Date Smoking Tobacco: Never Assessed Sex and Gender Information Value Date Recorded Sex Assigned at Not on file Legal Sex Male 2:54 AM PAID INTERN Gender Identity Not on file Sexual Orientation Not on file documented as of this encounter Plan of Treatment Not on file documented as of this encounter Visit Diagnoses Not on filedocumented in this encounter
--- OUTSIDE RECORDS SUMMARY | 2024-04-04 12:55 | XMS_ITS | Encounter Summary ---
Author Organization [facility] Address 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
--- OUTSIDE RECORDS SUMMARY | 2024-04-04 12:55 | XMS_ITS | Encounter Summary ---
Author Organization [facility] Address 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
--- OUTSIDE RECORDS SUMMARY | 2024-04-04 12:55 | XMS_ITS | Referral Summary ---
Author Organization [facility] Address [address] [place] [address] Care Team Providers Care Invoice Clerk Name Role Phone Unavailable Primary Care Provider Unavailabl e Source Comments [facility],non-owned Affiliates and Associated Physician Practices is amultiple site organization consisting of ambulatory clinics and hospital sitesin [place], [place], [place] and [place]. This disclosure is being madepursuant to the Care Everywhere program and may not contain all information available regarding this patient. Last updated 17.[facility] Allergies No known active allergies Medications * Be aware that medications may not be up to date on this document. Alwaysverify current medications with the patient. Medication Sig Dispensed Refills Start Date End Date Status amitriptyline (ELAVIL) 25 MG tablet Take 1 Tab by mouth at bedtime. FOR ONE WEEK THEN INCREASE TO 2 AT BEDTIME THEREAFTER 60 Tab 2 02/18/2012 Active carisoprodol (SOMA) 350 MG tablet Active lisinopril 10 MG TABS 10 mg, hydrochlorothiazide 25 MG TABS 25 mg Active HYDROmorphone (DILAUDID) 2 MG tablet Active hydrocodone-acetaminophen (NORCO) 5-325 MG tablet A ctive Clonazepam 0.5 MG TBDP Ac tive Active Problems Problem Noted Date Diagnosed Date Lumbago 02/19/2012 Immunizations Name Administration Dates Next Due INFLUENZA VACCINE, HIGH-DOSE , QUADR. (FLUZONE HIGH-DOSE QUADRIVALENT; 65Y+), 0.7 ML (HD-IIV4) 12/01/2017 Social History Tobacco Use Types Packs/Day Years Used Date Smoking Tobacco: Never Alcohol Use Standard Drinks/Week Comments No 0 (1 standard drink = 0.6 oz pur e alcohol) Sex and Gender Information Value Date Recorded Sex Assigned at Not on file Gender Identity Not on file Sexual Orientation Not on file Last Filed Vital Signs Vital Sign Reading Time Taken Comments Blood Pressure 120/78 02/19/2012 2:31 PM RESEARCH AND EVALUATION MANAGER Pulse - - Temperature - - Respiratory Rate - - Oxygen Saturation - - Inhaled Oxygen Concentration - - Weight 74.8 kg (165 lb) 02/19/2012 2:31 PM RESEARCH AND EVALUATION MANAGER Height 175.3 cm (5' 9 ) 02/19/2012 2:31 PM RESEARCH AND EVALUATION MANAGER Body Mass Index 24.37 02/19/2012 2:31 PM RESEARCH AND EVALUATION MANAGER Plan of Treatment Not on file
--- OUTSIDE RECORDS SUMMARY | 2024-04-04 12:55 | XMS_ITS | Clinical Summary ---
Author Organization [employer] [facility] Address [address] 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
--- OUTSIDE RECORDS SUMMARY | 2024-04-04 12:55 | XMS_ITS | Encounter Summary ---
Author Organization [facility] Address 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
--- OUTSIDE RECORDS SUMMARY | 2024-04-04 12:55 | XMS_ITS | Clinical Summary ---
Author Organization [facility] Address [address] [place] [address] Care Team Providers Care Turret Punch Operator Name Role Phone Unavailable Primary Care Provider Unavailabl e Source Comments [facility],non-owned Affiliates and Associated Physician Practices is amultiple site organization consisting of ambulatory clinics and hospital sitesin [place], [place], [place] and [place]. This disclosure is being madepursuant to the Care Everywhere program and may not contain all information available regarding this patient. Last updated 17.[facility] Allergies No known active allergies Medications * [...] Comments Blood Pressure 120/78 02/19/2012 2:31 PM BAR STAFF Pulse - - Temperature - - Respiratory Rate - - Oxygen Saturation - - Inhaled Oxygen Concentration - - Weight 74.8 kg (165 lb) 02/19/2012 2:31 PM BAR STAFF Height 175.3 cm (5' 9 ) 02/19/2012 2:31 PM BAR STAFF Body Mass Index 24.37 02/19/2012 2:31 PM BAR STAFF Plan of Treatment Health Maintenance Due Date Last Done Comments MEDICARE AWV ? 12 MONTHS 1940 DTAP/TDAP/TD VACCINES (1 - Tdap) 11/01/1958 PNEUMOCOCCAL VACCINE 50+ (1 of 1 - PCV) 11/01/1989 ZOSTER VACCINE (1 of 2) 11/01/1989 Respiratory Syncytial Virus (RSV) Vaccine Pt: or over 60 yrs (1 - 1-dose 75+ series) 11/01/2014 COVID-19 VACCINE ( - 2023-2 5 season) 2023 INFLUENZA VACCINE (#1) 2023 12/01/2017 DEPRESSION SCREENING 03/09/2024 HEPATITIS B VACCINE Aged Out No longe r eligible based on patient's age to complete this topic HIB VACCINE Aged Out No longer eligi ble based on patient's age to complete this topic HPV VACCINE Aged Out No longer eligi ble based on patient's age to complete this topic MENINGOCOCCAL (Group B) VACCINE Aged Out No longer eligible based on patient's age to complete this topic MENINGOCOCCAL VACCINE Aged Out No osvaldo moncho eligible based on patient's age to complete this topic
--- OUTSIDE RECORDS SUMMARY | 2024-04-04 12:55 | XMS_ITS | CONTINUITY OF CARE DOCUMENT ---
Author Name ke dempsey Address Unknown Organization [facility] Address [address] [place] [address] Phone [phone] Care Team Providers Care Chip Washer Name Role Phone Fahad INTERIANO, Seng Unavailable CANDIS AYON MD Unavailable [phone] CANDIS AYON MD Unavailable INSURANCE PROVIDERS Payer name Policy type / Coverage type [place] red constitution party ID [place] Medicare [id number]
--- OUTSIDE RECORDS SUMMARY | 2024-04-04 12:55 | XMS_ITS | Encounter Summary ---
Author Organization [facility] Address 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
--- OUTSIDE RECORDS SUMMARY | 2024-04-04 12:55 | XMS_ITS | Encounter Summary ---
Author Organization [facility] Address 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
--- OUTSIDE RECORDS SUMMARY | 2024-04-04 12:55 | XMS_ITS | Encounter Summary ---
Author Organization [facility] Address 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
--- OUTSIDE RECORDS SUMMARY | 2024-04-04 12:55 | XMS_ITS | Patient Health Summary ---
Author Organization [facility] Address [address] [place] [address] Care Team Providers Care Television Mechanic Name Role Phone Unavailable Primary Care Provider Unavailabl e Note from [facility],non-owned Affiliates and Associated Physician Practices is amultiple site organization consisting of ambulatory clinics and hospital sitesin [place], [place], [place] and [place]. This disclosure is being madepursuant to the Care Everywhere program and may not contain all information available regarding this patient. Last updated 17.[facility] Allergies No known active allergies Medications * Be aware that medications may not be up to date on this document. Alwaysverify current medications with the patient. * amitriptyline (ELAVIL) 25 MG tablet(Started 02/18/2012) Take 1 Tab by mouth at bedtime. FOR ONE WEEK THEN INCREASE TO 2 AT BEDTIME THEREAFTER 2 refills left * carisoprodol (SOMA) 350 MG tablet * lisinopril 10 MG TABS 10 mg, hydrochlorothiazide 25 MG TABS 25 mg * HYDROmorphone (DILAUDID) 2 MG tablet * hydrocodone-acetaminophen (NORCO) 5-325 MG tablet * Clonazepam 0.5 MG TBDP Active Problems Problem Noted Date Diagnosed Date Lumbago 02/19/2012 Immunizations * INFLUENZA VACCINE, HIGH-DOSE, QUADR. (FLUZONE HIGH-DOSE QUADRIVALENT; 65Y+), 0.7 ML (HD-IIV4)(Given 12/01/2017) Social History Tobacco Use Types Packs/Day Years [...] Comments Blood Pressure 120/78 02/19/2012 2:31 PM CLERK OF SCALES Pulse - - Temperature - - Respiratory Rate - - Oxygen Saturation - - Inhaled Oxygen Concentration - - Weight 74.8 kg (165 lb) 02/19/2012 2:31 PM CLERK OF SCALES Height 175.3 cm (5' 9 ) 02/19/2012 2:31 PM CLERK OF SCALES Body Mass Index 24.37 02/19/2012 2:31 PM CLERK OF SCALES
[2024-04-04 13:00] LABS: Hematocrit 40.1 % (42.0-52.0); Hemoglobin 12.9 g/dL (14.0-18.0); Mean Corpuscular HGB Conc 32.2 g/dl (32-36); Mean Corpuscular Hemoglobin 30.6 pg (26-34); Mean Platelet Volume 10.4 fl (7.4-10.4); Platelet Count Result 195 k/mm3 (150-375); Red Blood Count 4.22 M/mm3 (4.6-6.20); White Blood Count 5.9 K/mm3 (4.5-10.0)
[2024-04-04 13:15] LABS: Alanine Aminotransferase 11 U/L (6-50); Albumin Level 4.1 g/dL (3.5-5.1); Alkaline Phosphatase 83 U/L (38-126); Anion Gap 7 mmol/L (4-12); Aspartate Amino Transferase 25 U/L (17-59); Bilirubin,Total 0.7 mg/dL (0.2-1.3); Blood Urea Nitrogen 17 mg/dL (9-20); Calcium 8.5 mg/dL (8.4-10.2); Carbon Dioxide 29 mmol/L (22-30); Chloride 103 mmol/L (98-107); Cholesterol 227 mg/dL (0-200); Estimated Glomerular Filt Rate > 60; Glucose 83 mg/dL (65-110); HDL Direct 59 mg/dL; Potassium 4.6 mmol/L (3.4-5.0); Sodium 139 mmol/L (137-145); Triglycerides 81 mg/dL (<150)
[2024-04-04 13:16] LABS: Hemoglobin A1C 5.3 % (<5.7)
[2024-04-04 13:21] LABS: LDL Cholesterol Direct 138 mg/dL
== END 2024-04-04 12:17 | disposition home or self-care (01) ==
LOC: ANHLAB 12:17
PROVIDERS: PCP Family Medicine; Visit Provider Family Medicine
DX: D64.9 Anemia, unspecified (principal); R73.9 Hyperglycemia, unspecified; I10 Essential (primary) hypertension; E55.9 Vitamin D deficiency, unspecified; E78.00 Pure hypercholesterolemia, unspecified; K21.9 Gastro-esophageal reflux disease without esophagitis; M54.50 Low back pain, unspecified; F41.9 Anxiety disorder, unspecified; G25.0 Essential tremor; R35.0 Frequency of micturition
CPT/HCPCS: 36415; 80053; 80061; 81003; 83036; 85027; 87086

== ENCOUNTER 2024-06-13 13:56 | Outpatient (CLI) | payer MEDICARE, SELFPAY ==
--- NOTE | ~2024-06-13 | XR_ITS ---
Lumbosacral Spine: AP and lateral views Clinical History: Pain COMPARISON: 07/30/2023 Findings: Stable osseous alignment is compared to prior exam. Stable interbody fusion across the L2-L 3 at L3-L4 disc spaces. There is moderate to advanced degenerative disc change at L4-L5 and L5-S1. Ex tensive facet arthropathy and fusion is present, unchanged. The sacroiliac joints are normally outlin ed. Impression: Stable postoperative and degenerative changes in the lumbar spine as compared to prior exam. Reviewed, dictated and finalized at location M. Impression: Stable postoperative and degenerative changes in the lumbar spine as compared t o prior exam.
--- OUTSIDE RECORDS SUMMARY | 2024-06-13 16:00 | XMS_ITS | Continuity of Care Document ---
Author Organization [facility] Address [address] [place] [address] Phone Care Team Providers Care Box Person Name Role Phone Christie Mesa Unavailable Unavailable Advance Directives Directive Yes / No Effective Date File Name No Information Encounters Encounter Description Practice Location Reason(s) For Visit Diagnoses Date Provider Providers Copied on Encounter [facility], [address], [place], [place], [id number], [place] tel:[phone] [address] [facility] [place] No Information [address] Sor[address]. [address] [place] , [address], [place], [address], [place]. tel:[phone] Family History Family Member Type Diagnosis Age At Onset No Information Payers Payer name Insurance type Covered green party ID Authoriza tion(s) Medicare [facility] [id number] Social History Type Description Quantity Date Captured [...]
--- OUTSIDE RECORDS SUMMARY | 2024-06-13 16:00 | XMS_ITS | Encounter Summary ---
Author Organization [employer] Address 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
--- OUTSIDE RECORDS SUMMARY | 2024-06-13 16:00 | XMS_ITS | Encounter Summary ---
Author Organization [facility] Address 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
--- OUTSIDE RECORDS SUMMARY | 2024-06-13 16:00 | XMS_ITS | Encounter Summary ---
Author Organization [facility] Address 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
--- OUTSIDE RECORDS SUMMARY | 2024-06-13 16:00 | XMS_ITS | Encounter Summary ---
Author Organization [facility] Address 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
--- OUTSIDE RECORDS SUMMARY | 2024-06-13 16:00 | XMS_ITS | Clinical Summary ---
Author Organization [facility] Address [address] [place] [address] Care Team Providers Care All Source Analyst Name Role Phone Unavailable Primary Care Provider Unavailabl e Source Comments [facility],non-owned Affiliates and Associated Physician Practices is amultiple site organization consisting of ambulatory clinics and hospital sitesin [place], [place], [place] and [place]. This disclosure is being madepursuant to the Care Everywhere program and may not contain all information available regarding this patient. Last updated 17.[facility] Allergies No known active allergies Medications * [...] Comments Blood Pressure 120/78 02/19/2012 2:31 PM CRAB STEAMER Pulse - - Temperature - - Respiratory Rate - - Oxygen Saturation - - Inhaled Oxygen Concentration - - Weight 74.8 kg (165 lb) 02/19/2012 2:31 PM CRAB STEAMER Height 175.3 cm (5' 9 ) 02/19/2012 2:31 PM CRAB STEAMER Body Mass Index 24.37 02/19/2012 2:31 PM CRAB STEAMER Plan of Treatment Health Maintenance Due Date Last Done Comments MEDICARE AWV 12 MONTHS 1939 DTAP/TDAP/TD VACCINES (1 - Tdap) 11/01/1958 PNEUMOCOCCAL VACCINE 50+ (1 of 1 - PCV) 11/01/1989 ZOSTER VACCINE (1 of 2) 11/01/1989 Respiratory Syncytial Virus (RSV) Vaccine Pt: or over 60 yrs (1 - 1-dose 75+ series) 11/01/2014 COVID-19 VACCINE (2023-2 5 season) 2023 INFLUENZA VACCINE (#1) 2023 12/01/2017 DEPRESSION SCREENING 03/09/2024 HEPATITIS B VACCINE Aged Out No longe r eligible based on patient's age to complete this topic HIB VACCINE Aged Out No longer eligi ble based on patient's age to complete this topic HPV VACCINE Aged Out No longer eligi ble based on patient's age to complete this topic MENINGOCOCCAL (Group B) VACC INE SHARED DECISION-MAKING Aged Out No longer eligibl e based on patient's age to complete this topic MENINGOCOCCAL GROUPS A/C/Y/W VACCINE Aged Out No longer eligible b ased on patient's age to complete this topic
--- OUTSIDE RECORDS SUMMARY | 2024-06-13 16:00 | XMS_ITS | Clinical Summary ---
Author Organization [facility] Address [address] 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
--- OUTSIDE RECORDS SUMMARY | 2024-06-13 16:00 | XMS_ITS | Continuity of Care Document ---
Author Organization [facility] Address [address] [place] [address] Phone Care Team Providers Care Satellite Television Installer Name Role Phone Tadeo Hopper MD Unavailable Unavailable Medications Medication Instructions Dosage Effective Dates (start - stop) Status Comments NASONEX 50MCG APPLICS 2 QAM - Acti ve Advance Directives Directive Yes / No Effective Date File Name No Information Encounters Encounter Description Practice Location Reason(s) For Visit Diagnoses Date Provider Providers Copied on Encounter [facility], [address] [place] [address], [id number], tel:[phone] [facility] No Information Ward Piedra. [address] [place], [place], [id number] , [place]. tel:[phone] [facility], [address] [place] [address], [id number], tel:[phone] [facility] OTH ADV EFF MED/BIO SUBLUMBAR DISC DISPLACEMENT Je Jensen. [address] [place], [place], [id number] , [place]. tel:[phone] [facility], [address] [place] [address], [id number], tel:[phone] [facility] CHRONIC RHINITIS Rivera Koch. [address], [id number] , . tel:[phone] Family History Family Member Type Diagnosis Age [...]
--- OUTSIDE RECORDS SUMMARY | 2024-06-13 16:00 | XMS_ITS | CONTINUITY OF CARE DOCUMENT ---
Author Name ke dempsey Address Unknown Organization [facility] Address [address] [place] [address] Phone [phone] Care Team Providers Care Phlebotomy Support Tech Name Role Phone Fahad INTERIANO, Seng Unavailable CANDIS AYON MD Unavailable CANDIS AYON MD Unavailable [phone] INSURANCE PROVIDERS Payer name Policy type / Coverage type [place] red green party ID [place] MED[place] Medicare [id number]
--- OUTSIDE RECORDS SUMMARY | 2024-06-13 16:00 | XMS_ITS | Encounter Summary ---
Author Organization [facility] Address 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
--- OUTSIDE RECORDS SUMMARY | 2024-06-13 16:00 | XMS_ITS | Continuity of Care Document ---
Author Organization [facility] Address [address] [address] [place] [address] Phone Care Team Providers Care Food Processor Name Role Phone Chloe Turner PA-C Unavailable [...] OFFICE/OUTPA TIENT VISIT EST [facility], [address] [address], [place], [address], [place] tel:[phone] [facility] After Henri Left knee pain, unspecified chronicityLeft leg pain 9 Yue Corona. [address] [facility] [address], [place], [place], [id number] . tel:[phone] OFFICE/OUTPA TIENT VISIT EST [facility], [address] [address], [place], [address], [place] tel:[phone] [facility] LBP and right buttock pain (chief complaint) S/P lumbar spinal fusionSacroiliac dysfunctionDJD (degenerative joint disease), lumbosacral 6 Mateo Epstein. [address] [facility], [place], [place], [id number] . tel:[phone] Referring Provider: Mayur Bautista, [address], [place], [address]. tel:[phone] OFFICE/OUTPA TIENT VISIT EST [facility], [address] [address], [place], [address], [place] tel:[phone] [facility] Pain in right hipPain in left hipRight sciatic nerve painGreater trochanteric bursitis of right hip 6 Isabela Anup. [address] [facility], [place], [place], [id number] . tel:[phone] OFFICE/OUTPA TIENT VISIT EST [facility], [address] [facility] [address], [place], [address], [place] tel:[phone] [facility] Disorder of synovium or tendon of shoulder, rightCarpal tunnel syndrome of right wristAftercare following surgery 0 6 Sanjay Nguyễn. [address], [place], [place], [id number] . tel: [phone] [facility], [address], [place], [address], [place] tel:[phone] [facility] Carpal tunnel syndrome of right wristAftercare following surgeryDisorder of synovium or tendon of shoulder, right 5 Sanjay Nguyễn. [address], [place], [place], [id number] . tel: [phone] [facility], [address], [place], [address], [place] tel:[phone] [facility] Carpal tunnel syndromeDisorder of bursae and tendons in shoulder regionAftercare following surgery 5 Sanjay Nguyễn. [address], [place], [place], [id number] . tel: [phone] [facility], [address], [place], [address], [place] tel:[phone] [facility] Carpal tunnel syndromeAftercare following surgery 5 Sanjay Nguyễn. [address], [place], [place], [id number] . tel: [phone] OFFICE/OUTPA TIENT VISIT EST [facility], [address], [place], [address], [place] tel:[phone] [facility] Disorder of bursae and tendons in shoulder regionCarpal tunnel syndrome 5 Sanjay Nguyễn. [address], [place], [place], [id number] . tel: [phone] OFFICE/OUTPA TIENT VISIT EST [facility], [address], [place], [address], [place] tel:[phone] [facility] Pain in joint involving shoulder regionLesion of ulnar nerve 5 Sanajy Nguyễn. [address], [place], [place], [id number] . tel: [phone] OFFICE/OUTPA TIENT VISIT EST [facility], [address], [place], [address], [place] tel:[phone] [facility] Complete rupture of rotator cuff 4 Sanjay Nguyễn. [address], [place], [place], [id number] . tel: [phone] [facility], [address], [place], [address], [place] tel:[phone] [facility] Follow Up of left shoulder (chief complaint) ObesityComplete rupture of rotator cuff 4 Sanjay Nguyễn. [address], [place], [place], [address] . tel: [phone] [facility], [address], [place], [address], [place] tel:[phone] [facility] Follow Up of left shoulder (chief complaint) Complete rupture of rotator cuff 4 Sanjay Nguyễn. [address], [place], [place], [id number] . tel: [phone] [facility], [address], [place], [address], [place] tel:[phone] [facility] Follow Up of left shoulder (chief complaint) Complete rupture of rotator cuff 4 Sanjay Nguyễn. [address], [place], [place], [address] . tel: [phone] Referring Provider: Mayur Bautista, [address], [place], [address]. tel:[phone] OFFICE/OUTPA TIENT VISIT EST [facility], [address], [place], [address], [place] tel:[phone] [facility] left shoulder pain (chief complaint) Disorders of bursae and tendons in shoulder region, unspecified 4 Sanjay Nguyễn. [address], [place], [place], [address] . tel:[phone] Referring Provider: Mayur Bautista, [address], [place], [address]. tel:[phone] OFFICE/OUTPA TIENT VISIT EST [facility], [address], [place], [address], [place] tel:[phone] [facility] Disorders of bursae and tendons in shoulder region, unspecified May-0 4-201 4 Sanjay Gopi. [address], [place], [place], [id number] . tel:[phone] Referring Provider: Mayur Bautista, [address], [place], [address]. tel:[phone] OFFICE/OUTPA TIENT VISIT EST [facility], [address], [place], [address], [place] tel:[phone] [facility] Disorders of bursae and tendons in shoulder region, unspecified Dec-0 3-201 3 Sanjay Lopezall. [address], [place], [place], [id number] . tel:[phone] Referring Provider: Mayur Bautista, [address], [place], [address]. tel:[phone] OFFICE/OUTPA TIENT VISIT EST [facility], [address], [place], [address], [place] tel:[phone] [facility] Disorders of bursae and tendons in shoulder region, unspecified 0 5-201 3 Sanjay Nguyễn. [address], [place], [place], [id number] . tel:[phone] Referring Provider: Mayur Bautista, [address], [place], [address]. tel:[phone] OFFICE/OUTPA TIENT VISIT EST [facility], [address], [place], [address], [place] tel:[phone] [facility] Disorders of bursae and tendons in shoulder region, unspecified 3 Sanjay Nguyễn. [address], [place], [place], [address] . tel:[phone] Referring Provider: Mayur Bautista, [address], [place], [place], [facility]. tel:[phone] OFFICE/OUTPA TIENT VISIT EST [facility], [address] [facility] [address], [place], [address], tel:[phone] [facility] Disorders of bursae and tendons in shoulder region, unspecified 3 Sanjay Nguyễn. [address], [place], [place], [address] . tel:[phone] Referring Provider: Mayur Bautista, [address], [place], [facility]. tel:[phone] OFFICE/OUTPA TIENT VISIT NEW [facility], [address] [facility] [facility] [address], [place], [address], tel:[phone] [facility] right shoulder (chief complaint) Pain in joint involving shoulder regionHypertensio n, Unspecified 3 Sanjay Nguyễn. [address], [place], [place], [address] . tel:[phone] Referring Provider: Mayur Bautista, [address], [place], [place], [facility]. tel:[phone] Family History Family Member Type Diagnosis Age [...] tolerated OTC anti-inflammatories (NSAIDs) OTC anti-inflammatories (NSAIDs) See plan for specifi c education/instructions Activity as tolerated See plan for specifi c education/instructions OTC anti-inflammatories (NSAIDs) Activity as tolerated See plan for specifi c education/instructions OTC medication -acetaminophen Activity as tolerated Assessments Type Assessment Date assessment Left knee pain, unspecified commercial loan analyst nicity assessment Left leg pain Patient Care Teams Name Effective Dates (start - stop) Status Members No Information
--- OUTSIDE RECORDS SUMMARY | 2024-06-13 16:00 | XMS_ITS | Encounter Summary ---
Author Organization [facility] Address 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
--- OUTSIDE RECORDS SUMMARY | 2024-06-13 16:00 | XMS_ITS | Encounter Summary ---
Author Organization [facility] Address 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
== END 2024-06-13 13:57 | disposition home or self-care (01) ==
PROVIDERS: PCP Family Medicine; Visit Provider Family Medicine
DX: M51.369 Other intervertebral disc degeneration, lumbar region without mention of lumbar back pain or lower extremity pain (principal)
CPT/HCPCS: 72100

== ENCOUNTER 2024-08-26 13:10 | Emergency (ER) | payer MEDICARE, SELFPAY ==
--- NOTE | ~2024-08-26 | XR_ITS ---
EXAMINATION: XR chest 2V DATE: 08/26/2024 14:19 INDICATION: dizziness and weakness TECHNIQUE: frontal and lateral views of the chest were obtained. COMPARISON: Chest CT dated 09/30/2023 FINDINGS: Mild lingular discoid atelectasis/scarring at the anterolateral left lung base. No other airspace opa cities, pulmonary edema, pleural effusion or pneumothorax. The cardiomediastinal silhouette is normal . Mild thoracic spondylosis with bridging osteophytes at multiple levels consistent with diffuse idio pathic skeletal hyperostosis (DISH). IMPRESSION: 1. Mild lingular discoid atelectasis/scarring. No other acute cardiopulmonary disease. Reviewed, dictated and finalized at location B. IMPRESSION: 1. Mild lingular discoid atelectasis/scarring. No other acute cardiopulmonary d isease.
--- NOTE | ~2024-08-26 | CT_ITS ---
CTA chest abdomen pelvis Ordering provider: Bala Sibley MD History: . LL abdominal pain, and left leg numbness, . Comparison: September 30, 2023 Technique: CT angiogram chest, abdomen and pelvis was performed following timed intravenous injection of contrast. Thin slice axial images and reformatted coronal images were obtained. Three dimensional reformatted images of the chest were also obtained using a [employer] workstation. Radiation reduction t echnique utilized. The dose-length product was 532.83 mGy-cm. 100 mL Omnipaque 350 was given IV. FINDINGS: CHEST: --THORACIC AORTA: Mild atheromatous disease. No aneurysm, dissection or mediastinal hematoma. --GREAT VESSELS: Normal as visualized. --PULMONARY ARTERIES: No pulmonary embolus. --VISUALIZED THORACIC INLET: Normal. --MEDIASTINUM: Coronary arteries: Moderate atheromatous disease.. Gallbladder is seen in the aortic arch unchanged from previous examination Heart/other: The heart is not enlarged. Lymph nodes: No mediastinal or hilar adenopathy. Enhancing Prevascular lymph node is seen measuring 1 .1 cm. --LUNGS: Dependent atelectatic changes. No pulmonary nodules or masses. No infiltrates or effusions. No pneumo thorax. --MUSCULOSKELETAL: Superficial soft tissues: The superficial soft tissues are normal. Bones: Age appropriate degenerative changes of the spine. ABDOMEN/PELVIS: --MUSCULOSKELETAL: Bones: Age appropriate degenerative changes of the spine. Postoperative changes in the lower lumbar a aye. Bilateral hip osteoarthritic changes. Superficial soft tissues: The superficial soft tissues are normal. --UPPER ABDOMINAL ORGANS: Liver: Normal. Gallbladder: Contracted. Spleen: Normal. Stomach/duodenum: Normal. Pancreas: Normal. Adrenals: Normal. Kidneys: Multiple cysts in the right kidney with the largest measures 3 cm. Small cyst in the left ki dney lower pole. --PELVIC ORGANS: The bladder is normal. No bladder stones. --BOWEL AND MESENTERY: Colon: Thickened wall of the sigmoid colon which may indicate colitis. Other differential include div erticulitis and infiltrative process. Follow-up advised. Fecal material is loaded in the colon.. Norm al appendix. Small Bowel: Normal. No obstruction. Peritoneum/mesentery: No free air or free fluid. No mesenteric lymphadenopathy. --RETROPERITONEUM: No retroperitoneal lymphadenopathy. --ARTERIES: ABDOMINAL AORTA: Multiple focal dissection areas which are unchanged from previous examination. Mod erate atheromatous disease. RENAL ARTERIES: Mild atherosclerotic changes CELIAC AXIS: Mild atherosclerotic changes SMA: Mild atherosclerotic sclerotic changes. VALERY: Normal ILIAC AND VISUALIZED FEMORAL ARTERIES: Atherosclerotic changes MESENTERIC ARTERIES: Normal. IMPRESSION: CHEST: 1. Penetrating ulcer in the aortic arch unchanged from previous examination. 2. No pulmonary embolism. 3. No acute lung lesion seen. ABDOMEN/PELVIS: 1. Multiple focal areas of dissection unchanged from previous examination. 2. No evidence of appendicitis, diverticulitis or intestinal obstruction. 3. Thickening of the sigmoid colon which may indicate colitis. Other differential include diverticul itis and infiltrative process. Follow-up advised. 4. Constipation. 5. Bilateral renal cysts. Reviewed, dictated and finalized at location A. IMPRESSION: CHEST: 1. Penetrating ulcer in the aortic arch unchanged from previous examination. 2. No pulmonary embolism. 3. No acute lung lesion seen. ABDOMEN/PELVIS: 1. Multiple focal areas of dissection unchanged from previous examination. 2. No evidence of appendicitis, diverticulitis or intestinal obstruction. 3. Thickening of the sigmoid colon which may indicate colitis. Other different ial include diverticulitis and infiltrative process. Follow-up advised. 4. Constipation. 5. Bilateral renal cysts.
[2024-08-26 13:22] VITALS: BP 171/59; PULSE 75; RESP 20; TEMP 36.6; O2SAT 100
[2024-08-26 13:45] VITALS: BP 149/73; PULSE 80; PULSE 86; RESP 18; O2SAT 99
--- NOTE | 2024-08-26 13:48 | ECG_ITS ---
Test Date: 2024-08-26 13:54:54 Measurements Intervals [place] Rate: 70 P: 52 TN: 172 QRS: -12 QRSD: 94 T: 3 QT: 423 QTc: 456 Interpretive Statements SINUS RHYTHM WITH OCCASIONAL VENTRICULAR PREMATURE COMPLEXES LEFT VENTRICULAR HYPERTROPHY BORDERLINE T WAVE ABNORMALITY- INFERIOR LEADS BASELINE ARTIFACT- II, III, AVR, AVL, AVF BORDERLINE ECG Compared to ECG 09/29/2023 21:21:26 Ventricular premature complex(es) now present Electronically Signed On 08-26-2024 14:52:05 CDT by Armando Jacques D.O.
[2024-08-26 13:50] VITALS: BP 160/77; BP 176/71; PULSE 73; PULSE 87
[2024-08-26 13:51] VITALS: BP 180/71; PULSE 91
[2024-08-26 13:58] LABS: Basophils Percent Auto 0.3 % (0.2-1.2); Eosinophils Absolute Auto 0.1 K/mm3 (0-0.3); Eosinophils Percent Auto 0.9 % (0-4.4); Hematocrit 38.8 % (42.0-52.0); Hemoglobin 12.9 g/dL (14.0-18.0); Immature Granulocyte Absolute 0.01 K/mm3 (0.00-0.031); Immature Granulocyte Percent A 0.2 % (0-0.5); Lymphocytes Absolute Auto 1.74 K/mm3 (0.9-3.2); Lymphocytes Percent Auto 27.4 % (18.3-44.2); Mean Corpuscular HGB Conc 33.2 g/dl (32-36); Mean Corpuscular Hemoglobin 30.5 pg (26-34); Mean Corpuscular Volume 91.7 fl (80-100); Mean Platelet Volume 9.2 fl (7.4-10.4); Monocytes Absolute Auto 0.5 K/mm3 (0.1-0.6); Monocytes Percent Auto 7.6 % (2.6-8.5); Neutrophils Percent Auto 63.6 % (45.5-73.1); Platelet Count Result 208 k/mm3 (150-375); Red Blood Count 4.23 M/mm3 (4.6-6.20); Red Cell Distribution Width 13.3 % (11.5-14.5); White Blood Count 6.3 K/mm3 (4.5-10.0)
[2024-08-26 14:00] LABS: Add Urine Microscopic? NO; Appearance Urine Clear (Clear); Bilirubin Urine Negative (Negative); Blood Urine Negative (Negative); Color Urine Yellow (Yellow); Glucose Urine UA Negative (Negative); Ketones Urine Negative (Negative); Leukocyte Esterase Ur Negative LEU/UL (Negative); Nitrate Urine Negative (Negative); Protein Urine Negative (Negative); Specific Grav Ur 1.008 (1.001-1.035); Urobilinogen Urine 0.2 mg/dL (<2.0); pH Urine 7.5 (5.0-9.0)
[2024-08-26 14:08] LABS: Alanine Aminotransferase 19 U/L (6-50); Albumin Level 4.2 g/dL (3.5-5.1); Alkaline Phosphatase 76 U/L (38-126); Anion Gap 10 mmol/L (4-12); Aspartate Amino Transferase 27 U/L (17-59); Bilirubin,Total 0.3 mg/dL (0.2-1.3); Blood Urea Nitrogen 15 mg/dL (9-20); Calcium 9.3 mg/dL (8.4-10.2); Carbon Dioxide 26 mmol/L (22-30); Chloride 99 mmol/L (98-107); Estimated CRCL calculation 55 ml/min; Estimated Glomerular Filt Rate > 60; Glucose 137 mg/dL (65-110); Potassium 3.6 mmol/L (3.4-5.0); Sodium 135 mmol/L (137-145)
--- NOTE | 2024-08-26 14:58 | PC.NURSE ---
patient ambulatory to bathroom and back to bed with SBA only.
--- NOTE | 2024-08-26 16:50 | ED.GENADULT ---
HPI - General Adult General Chief complaint: Weakness Stated complaint: weakness, dizzy, light headed Time Seen by Provider: 08/26/24 13:33 History of Present Illness HPI narrative: Patient is a poor historian. He has different complaints each time I entered the room. There is no family present with him and he brought himself to the hospital via private vehicle. This is an 83-year-old male history of dementia and anxiety presenting for abdominal pain/weakness. Patient states that he has been pain in left side of his abdomen several weeks. It is a cramping pain in left side. Does not move. Is constant but comes and goes. He has had pain like this before in the past. Patient thought it was constipation he has been constipated the last several days although he had a bowel movement earlier today which was normal. Has stool softeners at home but has not been taking them. He was recently put on anxiety medication list primary care physician. Related Data Home Medications ?Medication ?Instructions ?Recorded ?Confirmed ?Last Taken ?Type acetaminophen 325 mg tablet 500 mg PO Q4-6H PRN Pain 05/05/22 07/22/23 Unknown History atorvastatin 40 mg tablet 40 mg PO DAILY 05/05/22 07/22/23 Unknown History lisinopril 10 1 tablet PO DAILY 08/03/24 Unknown History mg-hydrochlorothiazide 12.5 mg tablet Allergies Allergy/AdvReac Type Severity Reaction Status Date / Time No Known Allergies Allergy Verified 08/26/24 13:51 [facility] Past Medical History Medical History Gastritis, Helicobacter pylori Essential (primary) hypertension Hyperlipidemia Panic disorder [episodic paroxysmal anxiety] Rotator cuff arthropathy Surgical History Surgical History History of lumbar discectomy (~2003) History of lumbar discectomy (~2005) H/O colonoscopy (~2007) History of esophagogastroduodenoscopy (EGD) H/O prostate biopsy Family History Family History Father Family history of malignant neoplasm Patient's father is Mother Family history of malignant neoplasm Patient's mother is Social History Social History Smoking packs per day: 0.5 Smoking cigarettes per day: 10.0 Years smoked: 20 Smoking pack-years: 10.00 Smoking status: Former smoker Tobacco type: cigarettes Second hand tobacco smoke exposure: Yes Smoking end date: 03/09/84 Alcohol intake: former Alcohol use details: beer Substance use: never Substance use type: does not use Lack of Transportation: No Lack of Food: Never True Current Housing: I Have Housing Concerned About Future Housing: No Difficulty Paying Gas/Electric Bills: No Difficulty Paying for Meds: No Currently Unemployed: No Education: High School Diploma/GED Difficulty w/ Childcare or Family Care: No Living arrangements: alone Gender identity (if verbalized by the patient): Male Spiritual care concerns: No Exam Narrative: APPEARANCE: No apparent distress. Head: atraumatic. EYES: EOMI, NOSE: Atraumatic NECK: Trachea midline RESPIRATORY: No increased rate of breathing clear to auscultation CARDIOVASCULAR: RRR, +2 pulses in all extremities ABDOMINAL: Soft nontender no guarding or rebound, no CVA tenderness MUSCULOSKELETAl: No obvious deformities NEURO: Alert. Moving 4/4 extremities SKIN:: Warm, dry. Normal color PSYCHIATRIC: Normal affect Course Vital Signs Vital signs: Vital Signs Temperature 97.8 F 08/26/24 13:22 Pulse Rate 75 08/26/24 13:22 Respiratory Rate 20 08/26/24 13:22 Blood Pressure 171/59 H 08/26/24 13:22 Pulse Oximetry 100 08/26/24 13:22 Oxygen Delivery Room Air 08/26/24 13:22 Temperature 97.8 F 08/26/24 13:22 Pulse Rate 91 08/26/24 13:51 Respiratory Rate 18 08/26/24 13:45 Blood Pressure 180/71 H 08/26/24 13:51 Pulse Oximetry 99 08/26/24 13:45 Oxygen Delivery Room Air 08/26/24 13:22 Medical Decision Making MDM Narrative Medical decision making narrative: -Course: 83-year-old male with dementia presenting with left-sided abdominal pain. Patient states he is weak although he is getting up and walking around the room into the hallway. No objective weakness on exam. Physical exam is unremarkable in appears in good health. Patient has known aortic ulcers and chronic dissection so CTA was of the chest and pelvis was ordered. No change in his aortic ulcers or dissections. There is evidence of colitis and constipation. These are likely the cause of the patient's abdominal discomfort. Otherwise his laboratory studies are within normal limits. Results were discussed with the patient. He has been instructed to resume his stool softeners. Patient be discharged follow-up his primary care physician. -DDX includes but is not limited to: Constipation, colitis, aortic dissection, aortic ulcer, diverticulitis Vital Signs Vital Signs: Vital Signs Temperature 97.8 F 08/26/24 13:22 Pulse Rate 75 08/26/24 13:22 Respiratory Rate 20 08/26/24 13:22 Blood Pressure 171/59 H 08/26/24 13:22 Pulse Oximetry 100 08/26/24 13:22 Oxygen Delivery Room Air 08/26/24 13:22 Temperature 97.8 F 08/26/24 13:22 Pulse Rate 91 08/26/24 13:51 Respiratory Rate 18 08/26/24 13:45 Blood Pressure 180/71 H 08/26/24 13:51 Pulse Oximetry 99 08/26/24 13:45 Oxygen Delivery Room Air 08/26/24 13:22 Lab Data 08/26/24 13:52 08/26/24 13:52 Labs: Lab Results 08/26/24 Range/Units 13:52 WBC 6.3 (4.5-10.0) K/mm3 RBC 4.23 L (4.6-6.20) M/mm3 Hgb 12.9 L (14.0-18.0) g/dL Hct 38.8 L (42.0-52.0) % MCV 91.7 (80-100) fl MCH 30.5 (26-34) pg MCHC 33.2 (32-36) g/dl RDW 13.3 (11.5-14.5) % Plt Count 208 (150-375) k/mm3 MPV 9.2 (7.4-10.4) fl Immature Gran % (Auto) 0.2 (0-0.5) % Neut % (Auto) 63.6 (45.5-73.1) % Lymph % (Auto) 27.4 (18.3-44.2) % [place] % (Auto) 7.6 (2.6-8.5) % Eos % (Auto) 0.9 (0-4.4) % Baso % (Auto) 0.3 (0.2-1.2) % Lymph # (Auto) 1.74 (0.9-3.2) K/mm3 [place] # (Auto) 0.5 (0.1-0.6) K/mm3 Eos # (Auto) 0.1 (0-0.3) K/mm3 Baso # (Auto) 0.0 (0.0-0.1) K/mm3 Abs Immat Gran (auto) 0.01 (0.00-0.031) K/mm3 Absolute Neuts (auto) 4.0 (1.3-6.7) K/mm3 Absolute Nucleated RBC 0.000 (0.0-0.012) K/mm3 Nucleated RBC % 0.0 (0.0-0.2) % Sodium 135 L (137-145) mmol/L Potassium 3.6 (3.4-5.0) mmol/L Chloride 99 (98-107) mmol/L Carbon Dioxide 26 (22-30) mmol/L Anion Gap 10 (4-12) mmol/L BUN 15 (9-20) mg/dL Creatinine 0.88 (0.7-1.3) mg/dL Estim Creat Clear Calc 55 ml/min Estimated GFR > 60 (59 - ) Glucose 137 H (65-110) mg/dL Calcium 9.3 (8.4-10.2) mg/dL Total Bilirubin 0.3 (0.2-1.3) mg/dL AST 27 (17-59) U/L ALT 19 (6-50) U/L Alkaline Phosphatase 76 (38-126) U/L Total Protein 7.0 (6.3-8.2) g/dL Albumin 4.2 (3.5-5.1) g/dL Urine Color Yellow (Yellow) Urine Appearance Clear (Clear) Urine pH 7.5 (5.0-9.0) Ur Specific [place] 1.008 (1.001-1.035) Urine Protein Negative (Negative) mg/dL Urine Glucose (UA) Negative (Negative) mg/dL Urine Ketones Negative (Negative) mg/dL Ur Blood (Man) Negative (Negative) Urine Nitrate Negative (Negative) Urine Bilirubin Negative (Negative) Urine Urobilinogen 0.2 (<2.0) mg/dL Leukocyte Esterase Rfl Negative (Negative) BRIAN/UL Discharge Plan Discharge Clinical Impression: Abdominal pain, Constipation, Dementia Patient Disposition: Home Condition: Stable Instructions: Antibiotic Form, Abdominal Pain (ED) Additional Instructions: You were seen in the emergency department for abdominal pain. Your CT showed constipation as well as some inflammation of your colon. Please follow-up with your primary care physician for further management. If you develop fevers, bloody, diarrhea, or severe pain, please return to the ED for re-evaluation. Please resume your stool softeners as were constipated and that may be contributing to your pain. Patient Language: Irish Prescriptions: No Action lisinopril-hydrochlorothiazide 10-12.5 mg tablet 1 tablet PO DAILY hydroxyzine HCl 50 mg tablet 50 mg PO TID PRN (Reason: anxiety) Qty: 90 1RF atorvastatin 40 mg tablet 40 mg PO DAILY polyethylene glycol 3350 [Miralax] 17 gram/dose powder 17 g PO DAILY PRN (Reason: constipation) Qty: 510 1RF acetaminophen 325 mg tablet 500 mg PO Q4-6H PRN (Reason: Pain) omeprazole 40 mg capsule,delayed release(DR/EC) 40 mg PO DAILY Qty: 90 1RF trazodone 50 mg tablet 50 mg PO QHS PRN (Reason: insomnia) Qty: 90 0RF Follow-up/Referrals: Vadim Dumont MD [Primary Care Provider] - 1 Week
== END 2024-08-26 18:07 | disposition home or self-care (01) ==
PROVIDERS: Emergency Provider Emergency Medicine; PCP Family Medicine
DX: R10.9 Unspecified abdominal pain (principal); K59.00 Constipation, unspecified; F03.90 Unspecified dementia, unspecified severity, without behavioral disturbance, psychotic disturbance, mood disturbance, and anxiety; F41.9 Anxiety disorder, unspecified; I10 Essential (primary) hypertension; E78.5 Hyperlipidemia, unspecified; Z87.891 Personal history of nicotine dependence
CPT/HCPCS: 36415; 71046; 71275; 74174; 80053; 81003; 85025; 93005; 99284; Q9967

== ENCOUNTER 2024-10-27 11:04 | Outpatient (CLI) | payer MEDICARE, SELFPAY ==
[2024-10-27 11:46] LABS: Hematocrit 40.5 % (42.0-52.0); Hemoglobin 13.1 g/dL (14.0-18.0); Immature Granulocyte Percent A 0.3 % (0-0.5); Lymphocytes Absolute Auto 1.65 K/mm3 (0.9-3.2); Mean Corpuscular HGB Conc 32.3 g/dl (32-36); Mean Corpuscular Hemoglobin 30.9 pg (26-34); Mean Corpuscular Volume 95.5 fl (80-100); Nucleated Red Blood Cells Absolute Auto 0.000 K/mm3 (0.0-0.012); Nucleated Red Blood Cells Perc 0.0 % (0.0-0.2); Platelet Count Result 211 k/mm3 (150-375); Red Blood Count 4.24 M/mm3 (4.6-6.20); White Blood Count 6.0 K/mm3 (4.5-10.0)
[2024-10-27 11:47] LABS: Add Urine Microscopic? YES; Appearance Urine Cloudy (Clear); Glucose Urine UA Negative (Negative); Leukocyte Esterase Ur Negative LEU/UL (Negative); Nitrate Urine Negative (Negative); Non Pathogenic Casts 0-2; Specific Grav Ur 1.005 (1.001-1.035)
--- OUTSIDE RECORDS SUMMARY | 2024-10-27 11:49 | XMS_ITS | Encounter Summary ---
Author Organization [employer] Address 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
--- OUTSIDE RECORDS SUMMARY | 2024-10-27 11:49 | XMS_ITS | Clinical Summary ---
Author Organization [facility] Address [address] [place] [address] Care Team Providers Care Fur Pointer Name Role Phone Unavailable Primary Care Provider Unavailabl e Source Comments [facility],non-owned Affiliates and Associated Physician Practices is amultiple site organization consisting of ambulatory clinics and hospital sitesin [place], [place], [place] and [place]. This disclosure is being madepursuant to the Care Everywhere program and may not contain all information available regarding this patient. Last updated 17.[facility] Allergies No known active allergies Medications * Be aware that medications may not be up to date on this document. Alwaysverify current medications with the patient. amitriptyline (ELAVIL) 25 MG tablet Take 1 Tab by mouth at bedtime. FOR ONE WEEK THEN INCREASE TO 2 AT BEDTIME THEREAFTER 60 Tab 2 02/18/20 12 Active carisoprodol (SOMA) 350 MG tablet Active lisinopril 10 MG TABS 10 mg, hydrochlorothiazide 25 MG TABS 25 mg Active HYDROmorphone (DILAUDID) 2 MG tablet Active hydrocodone-acetaminop hen (NORCO) 5-325 MG tablet Active Clonazepam 0.5 MG TBDP Active Active Problems Problem Noted Date Diagnosed Date Lumbago 02/19/2012 Immunizations Immunization Administration Dates Next Due INFLUENZA VACCINE, HIGH-DOSE , QUADR. 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 Pulse - - Temperature - - Respiratory Rate - - Oxygen Saturation - - Inhaled Oxygen Concentration - - Weight 74.8 kg (165 lb) 02/19/2012 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 SHOVEL OPERATOR Height 175.3 cm (5' 9) 02/19/2012 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
--- OUTSIDE RECORDS SUMMARY | 2024-10-27 11:49 | XMS_ITS | Encounter Summary ---
Author Organization [employer] Address 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
--- OUTSIDE RECORDS SUMMARY | 2024-10-27 11:49 | XMS_ITS | Encounter Summary ---
Author Organization [employer] Address 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
--- OUTSIDE RECORDS SUMMARY | 2024-10-27 11:49 | XMS_ITS | Clinical Summary ---
Author Organization [facility] Address [address] 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
--- OUTSIDE RECORDS SUMMARY | 2024-10-27 11:49 | XMS_ITS | Encounter Summary ---
Author Organization [employer] Address 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
--- OUTSIDE RECORDS SUMMARY | 2024-10-27 11:49 | XMS_ITS | Encounter Summary ---
Author Organization [employer] Address 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
--- OUTSIDE RECORDS SUMMARY | 2024-10-27 11:49 | XMS_ITS | Encounter Summary ---
Author Organization [employer] Address 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
--- OUTSIDE RECORDS SUMMARY | 2024-10-27 11:49 | XMS_ITS | Encounter Summary ---
Author Organization [employer] Address 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
[2024-10-27 11:59] LABS: Alanine Aminotransferase 14 U/L (6-50); Albumin Level 4.1 g/dL (3.5-5.1); Alkaline Phosphatase 75 U/L (38-126); Anion Gap 5 mmol/L (4-12); Aspartate Amino Transferase 23 U/L (17-59); Bilirubin,Total 0.4 mg/dL (0.2-1.3); Blood Urea Nitrogen 11 mg/dL (9-20); Calcium 9.1 mg/dL (8.4-10.2); Carbon Dioxide 30 mmol/L (22-30); Chloride 100 mmol/L (98-107); Estimated Glomerular Filt Rate > 60; Glucose 98 mg/dL (65-110); Potassium 4.4 mmol/L (3.4-5.0); Sodium 135 mmol/L (137-145); Total Protein 6.9 g/dL (6.3-8.2)
[2024-10-27 12:08] LABS: Iron 103 ug/dL (49-181)
[2024-10-27 12:17] LABS: Percent Iron Saturation 46 % (20-50)
[2024-10-27 12:44] LABS: Thyroid Stimulating Hormone 1.160 uIU/mL (0.465-4.680)
== END 2024-10-27 11:05 | disposition home or self-care (01) ==
PROVIDERS: PCP Family Medicine; Visit Provider Family Medicine
DX: E78.00 Pure hypercholesterolemia, unspecified (principal); R19.7 Diarrhea, unspecified; K92.1 Melena; K57.90 Diverticulosis of intestine, part unspecified, without perforation or abscess without bleeding; E55.9 Vitamin D deficiency, unspecified; D64.9 Anemia, unspecified; R53.83 Other fatigue; R10.9 Unspecified abdominal pain
CPT/HCPCS: 36415; 80053; 81001; 82306; 83540; 83550; 84443; 85025; 87086

== ENCOUNTER 2024-10-28 10:59 | Outpatient (CLI) | payer MEDICARE, SELFPAY ==
--- OUTSIDE RECORDS SUMMARY | 2024-10-28 11:04 | XMS_ITS | Encounter Summary ---
Author Organization [employer] Address 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
--- OUTSIDE RECORDS SUMMARY | 2024-10-28 11:04 | XMS_ITS | Encounter Summary ---
Author Organization [employer] Address [address] [place] [address] Care Team Providers Care Toppiece Chopper Name Role Phone Unavailable Primary Care Provider [...] on file Legal Sex Male 2:54 AM NNPS Gender Identity Not on file Sexual Orientation Not on file documented as of this encounter Plan of Treatment Not on file documented as of this encounter Visit Diagnoses Not on filedocumented in this encounter
--- OUTSIDE RECORDS SUMMARY | 2024-10-28 11:04 | XMS_ITS | Clinical Summary ---
Author Organization [employer] [facility] Address [address] 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
--- OUTSIDE RECORDS SUMMARY | 2024-10-28 11:04 | XMS_ITS | Encounter Summary ---
Author Organization [employer] Address 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
--- OUTSIDE RECORDS SUMMARY | 2024-10-28 11:04 | XMS_ITS | Encounter Summary ---
Author Organization [employer] Address 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
--- OUTSIDE RECORDS SUMMARY | 2024-10-28 11:04 | XMS_ITS | Encounter Summary ---
Author Organization [employer] Address [address] [place] [address] Care Team Providers Care Clinical Applications Manager Name Role Phone Unavailable Primary Care [...] on file Legal Sex Male 2:54 AM SHOP HAND Gender Identity Not on file Sexual Orientation Not on file documented as of this encounter Plan of Treatment Not on file documented as of this encounter Visit Diagnoses Not on filedocumented in this encounter
--- OUTSIDE RECORDS SUMMARY | 2024-10-28 11:04 | XMS_ITS | Encounter Summary ---
Author Organization [employer] Address 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
--- OUTSIDE RECORDS SUMMARY | 2024-10-28 11:04 | XMS_ITS | Encounter Summary ---
Author Organization [employer] Address 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
--- OUTSIDE RECORDS SUMMARY | 2024-10-28 11:04 | XMS_ITS | Clinical Summary ---
Author Organization [facility] Address [address] [place] [address] Care Team Providers Care Gang Vibrator Operator Name Role Phone Unavailable Primary Care Provider Unavailabl e Source Comments [facility],non-owned Affiliates and Associated Physician Practices is amultiple site organization consisting of ambulatory clinics and hospital sitesin [place], [place], [place] and [place]. This disclosure is being madepursuant to the Care Everywhere program and may not contain all information available regarding this patient. Last updated 17.[facility] Allergies No known active allergies Medications * [...] Comments Blood Pressure 120/78 02/19/2012 2:31 PM EDUCATIONAL ASSISTANT TEACHER Pulse - - Temperature - - Respiratory Rate - - Oxygen Saturation - - Inhaled Oxygen Concentration - - Weight 74.8 kg (165 lb) 02/19/2012 2:31 PM EDUCATIONAL ASSISTANT TEACHER Height 175.3 cm (5' 9) 02/19/2012 2:31 PM EDUCATIONAL ASSISTANT TEACHER Body Mass Index 24.37 02/19/2012 2:31 PM EDUCATIONAL ASSISTANT TEACHER Plan of Treatment Health Maintenance Due Date [...]
[2024-10-28 11:56] LABS: IFOB Positive Control Positive; Immunochemical Fecal Occult Bl Negative (N)
[2024-10-28 12:33] LABS: Toxigenic C. Diff NEGATIVE (NEGATIVE)
== END 2024-10-28 11:00 | disposition home or self-care (01) ==
PROVIDERS: PCP Family Medicine; Visit Provider Family Medicine
DX: K92.1 Melena (principal)
CPT/HCPCS: 82274; 87493

== ENCOUNTER 2024-11-03 12:23 | Outpatient (CLI) | payer MEDICARE, SELFPAY ==
--- OUTSIDE RECORDS SUMMARY | 2000-03-19 05:15 | XMS_ITS | Continuity of Care Document ---
Author Organization [facility] Address [address] [place] [address] Phone Care Team Providers Care Graphic Illustrator Name Role Phone Christie Mesa Unavailable Unavailable Advance Directives Directive Yes / No Effective Date File Name No Information Encounters Encounter Description Practice Location Reason(s) For Visit Diagnoses Date Provider Providers Copied on Encounter [facility], [address], [place], [place], [id number], [place] tel:[phone] [facility] [place] No Information 1-200 1 Bonita Soriano. [address] [facility] [place] , [address], [place], [address], [place]. tel:[phone] Family History Family Member Type Diagnosis Age At Onset No Information Payers Payer name Insurance type Covered democrat ID Authoriza tion(s) Medicare [facility] [id number] Social History Type Description Quantity Date Captured [...]
--- OUTSIDE RECORDS SUMMARY | 2010-03-15 19:00 | XMS_ITS | Continuity of Care Document ---
Author Organization [facility] Address [address] [place] [address] Phone Care Team Providers Care Floor Molder Name Role Phone Tadeo Hopper MD Unavailable Unavailable Medications Medication Instructions Dosage Effective Dates (start - stop) Status Comments NASONEX 50MCG APPLICS 2 QAM - Acti ve Advance Directives Directive Yes / No Effective Date File Name No Information Encounters Encounter Description Practice Location Reason(s) For Visit Diagnoses Date Provider Providers Copied on Encounter [facility], [address] [place] [address], [id number], tel:[phone] [facility] No Information Ward Piedra. [address] [place], [place], [id number] , [place]. tel:[phone] [facility], [address] [place] [address], [id number], tel:[phone] [facility] OTH ADV EFF MED/BIO SUBLUMBAR DISC DISPLACEMENT Je Jensen. [address] [place], [place], [id number] , [place]. tel:[phone] [facility], [address] [place] [address], [id number], tel:[phone] [facility] Rivera Koch. [address], [id number] , . tel:[phone] Family History Family Member Type Diagnosis Age At Onset No Information Payers Payer name Insurance type Covered democrat ID Authoriza tion(s) No Information Social History Type Description Quantity Date Captured [...]
--- OUTSIDE RECORDS SUMMARY | 2018-08-24 13:00 | XMS_ITS | Continuity of Care Document ---
Author Organization [facility] Address [address] [address] [place] [address] Phone Care Team Providers Care Claims Associate Name Role Phone Chloe Turner PA-C Unavailable [...] OFFICE/OUTPA TIENT VISIT EST [facility], [address] [address], [place], [address], [place] tel:[phone] [facility] After [facility] Left knee pain, unspecified chronicityLeft leg pain 9 Yue Corona. [address] [facility] [address], [place], [place], [address] . tel:[phone] OFFICE/OUTPA TIENT VISIT EST [facility], [address] [address], [place], [address], [place] tel:[phone] [facility] LBP and right buttock pain (chief complaint) S/P lumbar spinal fusionSacroiliac dysfunctionDJD (degenerative joint disease), lumbosacral 6 Mateo Epstein. [address] [facility], [place], [place], [address] . tel:[phone] Referring Provider: Mayur Bautista, [address], [place], [address]. tel:[phone] OFFICE/OUTPA TIENT VISIT EST [facility], [address] [address], [place], [address], [place] tel:[phone] [facility] Pain in right hipPain in left hipRight sciatic nerve painGreater trochanteric bursitis of right hip 6 Isabela Anup. [address] [facility], [place], [place], [address] . tel:[phone] OFFICE/OUTPA TIENT VISIT EST [facility], [address] [facility] [address], [place], [address], [place] tel:[phone] [facility] Disorder of synovium or tendon of shoulder, rightCarpal tunnel syndrome of right wristAftercare following surgery 0 6 Sanjay Nguyễn. [address], [place], [place], [address] . tel: [phone] [facility], [address], [place], [address], [place] tel:[phone] [facility] Carpal tunnel syndrome of right wristAftercare following surgeryDisorder of synovium or tendon of shoulder, right 5 Sanjay Nguyễn. [address], [place], [place], [address] . tel: [phone] [facility], [address], [place], [address], [place] tel:[phone] [facility] Carpal tunnel syndromeDisorder of bursae and tendons in shoulder regionAftercare following surgery 5 Sanjay Nguyễn. [address], [place], [place], [address] . tel: [phone] [facility], [address], [place], [address], [place] tel:[phone] [facility] Carpal tunnel syndromeAftercare following surgery 5 Sanjay Nguyễn. [address], [place], [place], [address] . tel: [phone] OFFICE/OUTPA TIENT VISIT EST [facility], [address], [place], [address], [place] tel:[phone] [facility] Disorder of bursae and tendons in shoulder regionCarpal tunnel syndrome 5 Sanjay Nguyễn. [address], [place], [place], [address] . tel: [phone] OFFICE/OUTPA TIENT VISIT EST [facility], [address], [place], [address], [place] tel:[phone] [facility] Pain in joint involving shoulder regionLesion of ulnar nerve 5 Sanjay Nguyễn. [address], [place], [place], [address] . tel: [phone] OFFICE/OUTPA TIENT VISIT EST [facility], [address], [place], [address], [place] tel:[phone] [facility] Complete rupture of rotator cuff 4 Sanjay Nguyễn. [address], [place], [place], [address] . tel: [phone] [facility], [address], [place], [address], [place] tel:[phone] [facility] Follow Up of left shoulder (chief complaint) ObesityComplete rupture of rotator cuff 4 Sanjay Nguyễn. [address], [place], [place], [address] . tel: [phone] [facility], [address], [place], [address], [place] tel:[phone] [facility] Follow Up of left shoulder (chief complaint) Complete rupture of rotator cuff 4 Sanjay Nguyễn. [address], [place], [place], [address] . tel: [phone] [facility], [address], [place], [address], [place] tel:[phone] [facility] Follow Up of left shoulder (chief complaint) Complete rupture of rotator cuff 4 Sanjay Nguynễ. [address], [place], [place], [address] . tel: [phone] Referring Provider: Mayur Bautista, [address], [place], [address]. tel:[phone] OFFICE/OUTPA TIENT VISIT EST [facility], [address], [place], [address], [place] tel:[phone] [facility] left shoulder pain (chief complaint) Disorders of bursae and tendons in shoulder region, unspecified 4 Sanjay Nguyễn. [address], [place], [place], [address] . tel:[phone] Referring Provider: Mayur Bautista, [address], [place], [address]. tel:[phone] OFFICE/OUTPA TIENT VISIT EST [facility], [address], [place], [address], [place] tel:[phone] [facility] Disorders of bursae and tendons in shoulder region, unspecified May-0 4-201 4 Sanjay Gopi. [address], [place], [place], [address] . tel:[phone] Referring Provider: Mayur Bautista, [address], [place], [address]. tel:[phone] OFFICE/OUTPA TIENT VISIT EST [facility], [address], [place], [address], [place] tel:[phone] [facility] Disorders of bursae and tendons in shoulder region, unspecified Dec-0 3-201 3 Sanjay Lopezall. [address], [place], [place], [address] . tel:[phone] Referring Provider: Mayur Bautista, [address], [place], [address]. tel:[phone] OFFICE/OUTPA TIENT VISIT EST [facility], [address], [place], [address], [place] tel:[phone] [facility] Disorders of bursae and tendons in shoulder region, unspecified 0 5-201 3 Sanjay Nguyễn. [address], [place], [place], [address] . tel:[phone] Referring Provider: Mayur Bautista, [address], [place], [address]. tel:[phone] OFFICE/OUTPA TIENT VISIT EST [facility], [address], [place], [address], [place] tel:[phone] [facility] Disorders of bursae and tendons in shoulder region, unspecified 3 Sanjay Nguyễn. [address], [place], [place], [address] . tel:[phone] Referring Provider: Mayur Bautista, [address], [place], [place], [facility]. tel:[phone] OFFICE/OUTPA TIENT VISIT EST [facility], [address] [facility] [address], [place], [address], tel:[phone] [facility] Disorders of bursae and tendons in shoulder region, unspecified 3 Sanjay Nguyễn. [address], [place], [place], [address] . tel:[phone] Referring Provider: Mayur Bautista, [address], [place], [facility]. tel:[phone] OFFICE/OUTPA TIENT VISIT NEW [facility], [address] [facility] [address], [place], [address], tel:[phone] [facility] right shoulder (chief complaint) Pain in joint involving shoulder regionHypertensio n, Unspecified 3 Sanjay Nguyễn. [address], [place], [place], [address] . tel:[phone] Referring Provider: Mayur Bautista, [address], [place], [place], [facility]. tel:[phone] Family History Family Member Type Diagnosis Age At Onset Mother Problem (finding) Sister Problem (finding) Cardiovascular disease Brother Problem (finding) Cardiovascular disease Father Problem (finding) Cardiovascular disease Problem (finding) Family history of Heart disease Payers Payer name Insurance type Covered democrat [...] tendon, unspecified shoulder Discussed treatment options Rela pakr to Unspecified disorder of synovium and tendon, [...] Assessment Date assessment Left knee pain, unspecified c java developer nicity assessment Left leg pain Patient Care Teams Name Effective Dates (start - stop) Status Members No Information
--- OUTSIDE RECORDS SUMMARY | 2024-11-03 12:26 | XMS_ITS | Encounter Summary ---
Author Organization [employer] Address [address] [place] [address] Care Team Providers Care Home Fire Alarm Installer Name Role Phone Unavailable Primary Care Provider [...] on file Legal Sex Male 2:54 AM OWNER/OPERATOR Gender Identity Not on file Sexual Orientation Not on file documented as of this encounter Plan of Treatment Not on file documented as of this encounter Visit Diagnoses Not on filedocumented in this encounter
--- OUTSIDE RECORDS SUMMARY | 2024-11-03 12:26 | XMS_ITS | Clinical Summary ---
Author Organization [employer] [facility] Address [address] Alvaradon: Epic Prelude ADT EDILBERTOMARCI CASSIDYYUMIKO MATTHEWS [address] Care Team Providers Care Machine Packaging Technician Name Role Phone Unavailable Primary Care Provider Unavailabl e Social History Tobacco Use Types Packs/Day Years Used Date Smoking Tobacco: Never Assessed Sex and Gender Information Value Date Recorded Sex Assigned at Not on file Legal Sex Male 2:54 AM FORGE HEATER Gender Identity Not on file Sexual Orientation [...]
--- OUTSIDE RECORDS SUMMARY | 2024-11-03 12:26 | XMS_ITS | Encounter Summary ---
Author Organization [employer] Address [address] [place] [address] Care Team Providers Care Investments Manager Name Role Phone Unavailable Primary Care [...] on file Legal Sex Male 2:54 AM RIVET MAKER Gender Identity Not on file Sexual Orientation Not on file documented as of this encounter Plan of Treatment Not on file documented as of this encounter Visit Diagnoses Not on filedocumented in this encounter
--- OUTSIDE RECORDS SUMMARY | 2024-11-03 12:26 | XMS_ITS | Encounter Summary ---
Author Organization [employer] Address [address] [place] [address] Care Team Providers Care Communication Studies Professor Name Role Phone Unavailable Primary Care Provider [...] on file Legal Sex Male 2:54 AM UPHOLSTERER LIMOUSINE AND HEARSE Gender Identity Not on file Sexual Orientation Not on file documented as of this encounter Plan of Treatment Not on file documented as of this encounter Visit Diagnoses Not on filedocumented in this encounter
--- OUTSIDE RECORDS SUMMARY | 2024-11-03 12:26 | XMS_ITS | Clinical Summary ---
Author Organization [facility] [employer] Address [address] [place] [address] Care Team Providers Care Well Drill Operator Helper Cable Tool Name Role Phone Unavailable Primary Care Provider Unavailabl e Source Comments [facility] [employer],non-owned Affiliates and Associated Physician Practices is amultiple site organization consisting of ambulatory clinics and hospital sitesin [place], [place], [place] and [place]. This disclosure is being madepursuant to the Care Everywhere program and may not contain all information available regarding this patient. Last updated 17.[facility] [employer] Allergies No known active allergies Medications * [...] Comments Blood Pressure 120/78 02/19/2012 2:31 PM CRUST SORTER Pulse - - Temperature - - Respiratory Rate - - Oxygen Saturation - - Inhaled Oxygen Concentration - - Weight 74.8 kg (165 lb) 02/19/2012 2:31 PM CRUST SORTER Height 175.3 cm (5' 9) 02/19/2012 2:31 PM CRUST SORTER Body Mass Index 24.37 02/19/2012 2:31 PM CRUST SORTER Plan of Treatment Health Maintenance Due Date [...]
--- OUTSIDE RECORDS SUMMARY | 2024-11-03 12:26 | XMS_ITS | Encounter Summary ---
Author Organization [employer] Address [address] [place] [address] Care Team Providers Care Hood Fitter Name Role Phone Unavailable Primary Care Provider [...] on file Legal Sex Male 2:54 AM SOLAR PHOTOVOLTAIC INSTALLER Gender Identity Not on file Sexual Orientation Not on file documented as of this encounter Plan of Treatment Not on file documented as of this encounter Visit Diagnoses Not on filedocumented in this encounter
--- OUTSIDE RECORDS SUMMARY | 2024-11-03 12:26 | XMS_ITS | Encounter Summary ---
Author Organization [employer] Address [address] [place] [address] Care Team Providers Care Telecommunication Systems Designer Name Role Phone Unavailable Primary Care Provider [...] on file Legal Sex Male 2:54 AM TICKETING CLERK Gender Identity Not on file Sexual Orientation Not on file documented as of this encounter Plan of Treatment Not on file documented as of this encounter Visit Diagnoses Not on filedocumented in this encounter
--- OUTSIDE RECORDS SUMMARY | 2024-11-03 12:26 | XMS_ITS | Encounter Summary ---
Author Organization [employer] Address [address] [place] [address] Care Team Providers Care Manager Hotel Name Role Phone Unavailable Primary Care Provider [...] on file Legal Sex Male 2:54 AM CORPORATE LAW SPECIALIST Gender Identity Not on file Sexual Orientation Not on file documented as of this encounter Plan of Treatment Not on file documented as of this encounter Visit Diagnoses Not on filedocumented in this encounter
--- OUTSIDE RECORDS SUMMARY | 2024-11-03 12:26 | XMS_ITS | Encounter Summary ---
Author Organization [employer] Address [address] [place] [address] Care Team Providers Care Bagging Machine Operator Name Role Phone Unavailable Primary [...] on file Legal Sex Male 2:54 AM NUT FORMER Gender Identity Not on file Sexual Orientation Not on file documented as of this encounter Plan of Treatment Not on file documented as of this encounter Visit Diagnoses Not on filedocumented in this encounter
[2024-11-03 13:11] LABS: Add Urine Microscopic? NO; Appearance Urine Clear (Clear); Glucose Urine UA Negative (Negative); Leukocyte Esterase Ur Negative LEU/UL (Negative); Nitrate Urine Negative (Negative); Specific Grav Ur 1.017 (1.001-1.035)
[2024-11-03 13:14] LABS: Hematocrit 39.4 % (42.0-52.0); Hemoglobin 12.9 g/dL (14.0-18.0); Mean Corpuscular HGB Conc 32.7 g/dl (32-36); Mean Corpuscular Hemoglobin 31.2 pg (26-34); Mean Corpuscular Volume 95.2 fl (80-100); Platelet Count Result 225 k/mm3 (150-375); Red Blood Count 4.14 M/mm3 (4.6-6.20); White Blood Count 5.7 K/mm3 (4.5-10.0)
[2024-11-03 13:52] LABS: Alanine Aminotransferase 15 U/L (6-50); Albumin Level 4.1 g/dL (3.5-5.1); Alkaline Phosphatase 71 U/L (38-126); Anion Gap 5 mmol/L (4-12); Aspartate Amino Transferase 27 U/L (17-59); Bilirubin,Total 0.5 mg/dL (0.2-1.3); Blood Urea Nitrogen 14 mg/dL (9-20); Calcium 9.0 mg/dL (8.4-10.2); Carbon Dioxide 30 mmol/L (22-30); Chloride 101 mmol/L (98-107); Estimated Glomerular Filt Rate > 60; Glucose 102 mg/dL (65-110); Potassium 4.2 mmol/L (3.4-5.0); Sodium 136 mmol/L (137-145); Total Protein 6.9 g/dL (6.3-8.2)
== END 2024-11-03 12:24 | disposition home or self-care (01) ==
PROVIDERS: PCP Nurse Practitioner Family; Visit Provider Nurse Practitioner Family
DX: I71.9 Aortic aneurysm of unspecified site, without rupture (principal); K92.1 Melena; R19.7 Diarrhea, unspecified; R10.12 Left upper quadrant pain; R19.4 Change in bowel habit; R19.8 Other specified symptoms and signs involving the digestive system and abdomen; R93.3 Abnormal findings on diagnostic imaging of other parts of digestive tract; R06.02 Shortness of breath; R42 Dizziness and giddiness; R53.1 Weakness; R63.0 Anorexia
CPT/HCPCS: 36415; 80053; 81003; 85027; 87086

== ENCOUNTER 2024-11-04 11:13 | Emergency (ER) | payer MEDICARE, SELFPAY ==
--- OUTSIDE RECORDS SUMMARY | 2000-03-19 05:15 | XMS_ITS | Continuity of Care Document ---
Author Organization [facility] Address [address] [place] [address] Phone Care Team Providers Care Auto Tester Name Role Phone Christie Mesa Unavailable Unavailable Advance Directives Directive Yes / No Effective Date File Name No Information Encounters Encounter Description Practice Location Reason(s) For Visit Diagnoses Date Provider Providers Copied on Encounter [facility], [address], [place], [place], [id number], [place] tel:[phone] [facility] [place] No Information 1-200 1 Bonita Soriano. [address] [facility] [place] , [address], [place], [address], [place]. tel:[phone] Family History Family Member Type Diagnosis Age At Onset No Information Payers Payer name Insurance type Covered republican ID Authoriza tion(s) Medicare [facility] [id number] Social History Type Description Quantity Date Captured Comments Sex Male Smoking Status No Information Chief Complaint And Reason For Visit No Information Reason For Referral Reason For Referral No Information History Of Present Illness Encounter Date Complaint History Of Prese nt Illness No Information Functional Status Date Functional Assessmen t No Information Instructions Date Instruction Additional Infor mation No Information Assessments Type Assessment Date No Information Patient Care Teams Name Effective Dates (start - stop) Status Members No Information
--- OUTSIDE RECORDS SUMMARY | 2000-03-19 05:15 | XMS_ITS | Continuity of Care Document ---
Author Organization [facility] Address [address] [place] [address] Phone Care Team Providers Care Master Fire Control Technician Name Role Phone Christie Mesa Unavailable Unavailable Advance Directives Directive Yes / No Effective Date File Name No Information Encounters Encounter Description Practice Location Reason(s) For Visit Diagnoses Date Provider Providers Copied on Encounter [facility], [address], [place], [place], [address], [place] tel:[phone] [facility] No Information 1-200 1 Bonita Soriano. [address] [facility] [place] , [address], [place], [address], [place]. tel:[phone] Family History Family Member Type Diagnosis Age At Onset No Information Payers Payer name Insurance type Covered alliance party ID Authoriza tion(s) Medicare [facility] [id number] Social History Type Description Quantity Date Captured [...]
--- OUTSIDE RECORDS SUMMARY | 2010-03-15 19:00 | XMS_ITS | Continuity of Care Document ---
Author Organization [facility] Address [address] [place] [address] Phone Care Team Providers Care Interactive Producer Name Role Phone Tadeo Hopper MD Unavailable Unavailable Medications Medication Instructions Dosage Effective Dates (start - stop) Status Comments NASONEX 50MCG APPLICS 2 QAM - Acti ve Advance Directives Directive Yes / No Effective Date File Name No Information Encounters Encounter Description Practice Location Reason(s) For Visit Diagnoses Date Provider Providers Copied on Encounter [facility], [address] [place] [address], [id number], tel:[phone] [facility] No Information Ward Piedra. [address] [place], [place], [id number] , [place]. tel:[phone] [facility], [address] [place] [address], [id number], tel:[phone] [facility] OTH ADV EFF MED/BIO SUBLUMBAR DISC DISPLACEMENT Je Jensen. [address] [place], [place], [id number] , [place]. tel:[phone] [facility], [address] [place] [address], [id number], tel:[phone] [facility] RH[facility] Rivera Koch. [address], [id number] , . tel:[phone] Family History Family Member Type Diagnosis Age At Onset No Information Payers Payer name Insurance type Covered alliance party ID Authoriza tion(s) No Information Social History [...]
--- OUTSIDE RECORDS SUMMARY | 2010-03-15 19:00 | XMS_ITS | Continuity of Care Document ---
Author Organization [facility] Address [address] [place] [address] Phone Care Team Providers Care Social Services Specialist Name Role Phone Tadeo Hopper MD Unavailable Unavailable Medications Medication Instructions Dosage Effective Dates (start - stop) Status Comments NASONEX 50MCG APPLICS 2 QAM - Acti ve Advance Directives Directive Yes / No Effective Date File Name No Information Encounters Encounter Description Practice Location Reason(s) For Visit Diagnoses Date Provider Providers Copied on Encounter [facility], [address] [place] [address], [id number], tel:[phone] [facility] No Information Ward Piedra. [address] [place], [place], [id number] , [place]. tel:[phone] [facility], [address] [place] [address], [id number], tel:[phone] [facility] OTH ADV EFF MED/BIO SUBLUMBAR DISC DISPLACEMENT Je Jensen. [address] [place], [place], [id number] , [place]. tel:[phone] [facility], [address] [place] [address], [id number], tel:[phone] [facility] RHINIT[facility] Rivera Koch. [address], [id number] , . tel:[phone] Family History Family Member Type Diagnosis Age At Onset No Information Payers Payer name Insurance type Covered libertarian ID Authoriza tion(s) No Information Social History [...]
--- OUTSIDE RECORDS SUMMARY | 2018-08-24 13:00 | XMS_ITS | Continuity of Care Document ---
Author Organization [facility] Address [address] [address] [place] [address] Phone Care Team Providers Care Silk Examiner Name Role Phone Chloe Turner PA-C Unavailable Unavailabl e Allergies, Adverse Reactions, Alerts Substance Reaction Status Criticality No Known Allergies Active No Inform ation Medications Medication Instructions Dosage Effective Dates (start - stop) Status Comments Ultram 50 mg tablet take 1 tablet (50MG) 1 po tid or qid prn pain - Active CLONAZEPAM (unknown strength) Not Available - Active lisinopril-hydroch lorothiazide 10 mg-12.5 mg tablet - Active Procedures Procedure Date RADEX KNE 3 VIEWS OFFICE/OUTPATIENT VISIT EST RADEX SPI LUMBOSAC 2/3 VIEWS OFFICE/OUTPATIENT VISIT EST X-RAY EXAM HIPS BI W PELVIS 2 VIEWS OFFICE/OUTPATIENT VISIT EST OFFICE/OUTPATIENT VISIT EST POSTOP FOLLOW-UP VISIT POSTOP FOLLOW-UP VISIT POSTOP FOLLOW-UP VISIT OFFICE/OUTPATIENT VISIT EST OFFICE/OUTPATIENT VISIT EST OFFICE/OUTPATIENT VISIT EST POSTOP FOLLOW-UP VISIT POSTOP FOLLOW-UP VISIT POSTOP FOLLOW-UP VISIT OFFICE/OUTPATIENT VISIT EST OFFICE/OUTPATIENT VISIT EST OFFICE/OUTPATIENT VISIT EST MU Reporting OFFICE/OUTPATIENT VISIT EST MU Reporting OFFICE/OUTPATIENT VISIT EST MU Reporting OFFICE/OUTPATIENT VISIT EST MU Reporting OFFICE/OUTPATIENT VISIT NEW Advance Directives Directive Yes / No Effective Date File Name No Information Encounters Encounter Description Practice Location Reason(s) For Visit Diagnoses Date Provider Providers Copied on Encounter OFFICE/OUTPA TIENT VISIT EST [facility], [address] [address], [place], [address], [place] tel:[phone] [facility] Left knee pain, unspecified chronicityLeft leg pain 9 Yue Corona. [address] [facility] [address], [place], [place], [id number] . tel:[phone] OFFICE/OUTPA TIENT VISIT EST [facility], [address] [address], [place], [address], [place] tel:[phone] [facility] LBP and right buttock pain (chief complaint) S/P lumbar spinal fusionSacroiliac dysfunctionDJD (degenerative joint disease), lumbosacral 6 Mateo Epstein. [address] [facility], [place], [place], [id number] . tel:[phone] Referring Provider: Mayur Bautista, [address], [place], [address]. tel:[phone] OFFICE/OUTPA TIENT VISIT EST [facility], [address] [address], [place], [address], [place] tel:[phone] [facility] Pain in right hipPain in left hipRight sciatic nerve painGreater trochanteric bursitis of right hip 6 Isabela Anup. [address] [facility], [place], [place], [id number] . tel:[phone] OFFICE/OUTPA TIENT VISIT EST [facility], [address] [facility] [address], [place], [address], [place] tel:[phone] [facility] Disorder of synovium or tendon of shoulder, rightCarpal tunnel syndrome of right wristAftercare following surgery 0 6 Sanjay Nguyễn. [address], [place], [place], [id number] . tel: [phone] [facility], [address], [place], [address], [place] tel:[phone] [facility] Carpal tunnel syndrome of right wristAftercare following surgeryDisorder of synovium or tendon of shoulder, right 5 Sanjay Nguyễn. [address], [place], [place], [id number] . tel: [phone] [facility], [address], [place], [address], [place] tel:[phone] [facility] Carpal tunnel syndromeDisorder of bursae and tendons in shoulder regionAftercare following surgery 5 Sanjay Nguyễn. [address], [place], [place], [address] . tel: [phone] [facility], [address], [place], [address], [place] tel:[phone] [facility] Carpal tunnel syndromeAftercare following surgery 5 Sanjay Nguyễn. [address], [place], [place], [address] . tel: [phone] OFFICE/OUTPA TIENT VISIT EST [facility], [address], [place], [address], [place] tel:[phone] [facility] Disorder of bursae and tendons in shoulder regionCarpal tunnel syndrome 5 Sanjay Nguyễn. [address], [place], [place], [address] . tel: [phone] OFFICE/OUTPA TIENT VISIT EST [facility], [address], [place], [address], [place] tel:[phone] [facility] Pain in joint involving shoulder regionLesion of ulnar nerve 5 Sanjay Nguyễn. [address], [place], [place], [address] . tel: [phone] OFFICE/OUTPA TIENT VISIT EST [facility], [address], [place], [address], [place] tel:[phone] [facility] Complete rupture of rotator cuff 4 Sanjay Nguyễn. [address], [place], [place], [address] . tel: [phone] [facility], [address], [place], [address], [place] tel:[phone] [facility] Follow Up of left shoulder (chief complaint) ObesityComplete rupture of rotator cuff 4 Sanjay Nguyễn. [address], [place], [place], [address] . tel: [phone] [facility], [address], [place], [address], [place] tel:[phone] [facility] Follow Up of left shoulder (chief complaint) Complete rupture of rotator cuff 4 Sanjay Nguyễn. [address], [place], [place], [address] . tel: [phone] [facility], [address], [place], [address], [place] tel:[phone] [facility] Follow Up of left shoulder (chief complaint) Complete rupture of rotator cuff 4 Sanjay Nguyễn. [address], [place], [place], [address] . tel: [phone] Referring Provider: Mayur Bautista, [address], [place], [address]. tel:[phone] OFFICE/OUTPA TIENT VISIT EST [facility], [address], [place], [address], [place] tel:[phone] [facility] left shoulder pain (chief complaint) Disorders of bursae and tendons in shoulder region, unspecified 4 Sanjay Nguyễn. [address], [place], [place], [address] . tel:[phone] Referring Provider: Mayur Bautista, [address], [place], [address]. tel:[phone] OFFICE/OUTPA TIENT VISIT EST [facility], [address], [place], [address], [place] tel:[phone] [facility] Disorders of bursae and tendons in shoulder region, unspecified May-0 4-201 4 Sanjay Gopi. [address], [place], [place], [address] . tel:[phone] Referring Provider: Mayur Bautista, [address], [place], [address]. tel:[phone] OFFICE/OUTPA TIENT VISIT EST [facility], [address], [place], [address], [place] tel:[phone] [facility] Disorders of bursae and tendons in shoulder region, unspecified Dec-0 3-201 3 Sanjay oLpezall. [address], [place], [place], [address] . tel:[phone] Referring Provider: Mayur Bautista, [address], [place], [address]. tel:[phone] OFFICE/OUTPA TIENT VISIT EST [facility], [address], [place], [address], [place] tel:[phone] [facility] Disorders of bursae and tendons in shoulder region, unspecified 0 5-201 3 Sanjay Nguyễn. [address], [place], [place], [address] . tel:[phone] Referring Provider: Mayur Bautista, [address], [place], [address]. tel:[phone] OFFICE/OUTPA TIENT VISIT EST [facility], [address], [place], [address], [place] tel:[phone] [facility] Disorders of bursae and tendons in shoulder region, unspecified 3 Sanjay Nguyễn. [address], [place], [place], [address] . tel:[phone] Referring Provider: Mayur Bautista, [address], [place], [facility]. tel:[phone] OFFICE/OUTPA TIENT VISIT EST [facility], [address] [facility] [address], [place], [address], tel:[phone] [facility] Disorders of bursae and tendons in shoulder region, unspecified 3 Sanjay Nguyễn. [address], [place], [place], [address] . tel:[phone] Referring Provider: Mayur Bautista, [address], [place], [facility]. tel:[phone] OFFICE/OUTPA TIENT VISIT NEW [facility], [address] [facility] [address] [facility] [address], [place], [address], tel:[phone] [facility] right shoulder (chief complaint) Pain in joint involving shoulder regionHypertensio n, Unspecified 3 Sanjay Nguyễn. [address], [place], [place], [address] . tel:[phone] Referring Provider: Mayur Bautista, [address], [place], [place], [facility]. tel:[phone] Family History Family Member Type Diagnosis Age At Onset Mother Problem (finding) Sister Problem (finding) Cardiovascular disease Brother Problem (finding) Cardiovascular disease Father Problem (finding) Cardiovascular disease Problem (finding) Family history of Heart disease Payers Payer name Insurance type Covered green party ID Authoriza tion(s) No Information Social History Type Description Quantity Date Captured Comments Alcohol Use Details No Caffeine Use Details Unknown Tobacco Use Status Never smoked tobacco 2018 Smoking Status Never smoker Non-Smoking Tobacco Use Details : No Details Available : No Details Available Sex Male Vital Signs Date / Time: Height Weight BMI Pulse Rate Blood Pressure Temperature Respiratory Rate Body Surface Area Head Circumference Head Circ. Percentile Wt./[place]. Percentile BMI percentile Pulse Ox Inhaled Ox 7:18 PM 69.00 in 79.379 kg (175.00 lbs) 25.8 4 kg/m eter (2) Chief Complaint And Reason For Visit No Information Reason For Referral Reason For Referral No Information Plan Of Treatment Date Type Action Status Goal Lifestyle education regardin g diet completed Referral Ordered: RADEX KNE 3 VIEWS LT knee ordered Referral Ordered: RADEX SPI LUMBOSAC 2/3 VIEWS spine, lumbar ordered Referral Ordered: X-RAY EXAM HIPS BI W PELVIS 2 VIEWS RT ordered Referral Ordered: RADEX ELBW COMPL MINIMUM 3 VIEWS RT ordered Referral Ordered: MUSC TEST DONE W/N TEST COMP (EMG/NCS) RT arm Appointment date/timeframe: 09/14/2014 ordered Referral Ordered: MRI ANY JT UXTR C-MATRL RT shoulder Appointment date/timeframe: 09/14/2014 ordered Referral Ordered: RADEX MIREYA COMPL MINIMUM 2 VIEWS RT ordered Referral Ordered: MRI ANY JT UXTR C-MATRL LT shoulder Appointment date/timeframe: 08/11/2013 ordered Referral Ordered: RADEX MIREYA COMPL MINIMUM 2 VIEWS LT shoulder ordered Referral Ordered: RADEX MIREYA COMPL MINIMUM 2 VIEWS RT shoulder ordered History Of Present Illness Encounter Date Complaint History Of Prese nt Illness LBP and right buttock pain Follow Up of left shoulder Follow Up of left shoulder Follow Up of left shoulder Functional Status Date Functional Assessmen t No Information Instructions Date Instruction Additional Infor mation Apply moist heat or cold 20 min per hour. Related to Left leg pain Take medication as d irected, call office with change in symptoms Related to Left leg pain Home exercise program. Related t o Unspecified disorder of synovium and tendon, unspecified shoulder Discussed treatment options [facility] Unspecified disorder of synovium and tendon, unspecified shoulder Activity as tolerated. Related t o Carpal tunnel syndrome Discussed treatment options [facility] Disorder of bursae and tendons in shoulder region Discussed treatment options [facility] Pain in joint involving shoulder region Rest, ice and elevate. Related t o Complete rupture of rotator cuff Giving encouragement to exercise Related to Obesity, unspecified Lifestyle education regarding di et Related to Obesity, unspecified Relative rest Discussed post-operative precaut ions OTC anti-inflammatories (NSAIDs) See plan for specifi c education/instructions OTC anti-inflammatories (NSAIDs) Activity as tolerated OTC anti-inflammatories (NSAIDs) Activity as tolerated See plan for specifi c education/instructions Activity as tolerated See plan for specifi c education/instructions OTC anti-inflammatories (NSAIDs) OTC anti-inflammatories (NSAIDs) Activity as tolerated See plan for specifi c education/instructions See plan for specifi c education/instructions OTC anti-inflammatories (NSAIDs) Activity as tolerated See plan for specifi c education/instructions OTC medication -acetaminophen Activity as tolerated Assessments Type Assessment Date assessment Left knee pain, unspecified fisher trawl line nicity assessment Left leg pain Patient Care Teams Name Effective Dates (start - stop) Status Members No Information
--- OUTSIDE RECORDS SUMMARY | 2018-08-24 13:00 | XMS_ITS | Continuity of Care Document ---
Author Organization [facility] Address [id number] [address] [place] [address] Phone Care Team Providers Care Lodging House Keeper Name Role Phone Chloe Turner PA-C Unavailable [...] OFFICE/OUTPA TIENT VISIT EST [facility], [address] [address], [place], [address], [place] tel:[phone] [facility] After Henri Left knee pain, unspecified chronicityLeft leg pain 9 Yue Corona. [address] [facility] [address], [place], [place], [address] . tel:[phone] OFFICE/OUTPA TIENT VISIT EST [facility], [address] [address], [place], [address], [place] tel:[phone] [facility] LBP and right buttock pain (chief complaint) S/P lumbar spinal fusionSacroiliac dysfunctionDJD (degenerative joint disease), lumbosacral 6 Mateo Epstein. [address] [facility], [place], [place], [address] . tel:[phone] Referring Provider: Mayur Bautista, [address], [place], [address]. tel:[phone] OFFICE/OUTPA TIENT VISIT EST [facility], [address] [address], [place], [address], [place] tel:[phone] [facility] Pain in right hipPain in left hipRight sciatic nerve painGreater trochanteric bursitis of right hip 6 Isabela Anup. [address] [facility], [place], [place], [address] . tel:[phone] OFFICE/OUTPA TIENT VISIT EST [facility], [address] [facility] [address], [place], [address], [place] tel:[phone] [facility] Disorder of synovium or tendon of shoulder, rightCarpal tunnel syndrome of right wristAftercare following surgery 0 6 Sanjay Nguyễn. [address], [place], [place], [address] . tel: [phone] [facility], [address], [place], [address], [place] tel:[phone] [facility] Carpal tunnel syndrome of right wristAftercare following surgeryDisorder of synovium or tendon of shoulder, right 5 Sanjay Nguyễn. [address], [place], [place], [address] . tel: [phone] [facility], [address], [place], [address], [place] tel:[phone] [facility] Carpal tunnel syndromeDisorder of bursae and tendons in shoulder regionAftercare following surgery 5 Sanjay Nguyễn. [address], [place], [place], [address] . tel: [phone] [facility], [address], [place], [address], [place] tel:[phone] [facility] Carpal tunnel syndromeAftercare following surgery 5 Sanjay Nguyễn. [address], [place], [place], [address] . tel: [phone] OFFICE/OUTPA TIENT VISIT EST [facility], [address], [place], [address], [place] tel:[phone] [facility] Disorder of bursae and tendons in shoulder regionCarpal tunnel syndrome 5 Sanjay Nguyễn. [address], [place], [place], [address] . tel: [phone] OFFICE/OUTPA TIENT VISIT EST [facility], [address], [place], [address], [place] tel:[phone] [facility] Pain in joint involving shoulder regionLesion of ulnar nerve 5 Sanjay Nguyễn. [address], [place], [place], [address] . tel: [phone] OFFICE/OUTPA TIENT VISIT EST [facility], [address], [place], [address], [place] tel:[phone] [facility] Complete rupture of rotator cuff 4 Sanjay Nguyễn. [address], [place], [place], [address] . tel: [phone] [facility], [address], [place], [address], [place] tel:[phone] [facility] Follow Up of left shoulder (chief complaint) ObesityComplete rupture of rotator cuff 4 Sanjay Nguyễn. [address], [place], [place], [address] . tel: [phone] [facility], [address], [place], [address], [place] tel:[phone] [facility] Follow Up of left shoulder (chief complaint) Complete rupture of rotator cuff 4 Sanjay Nguyễn. [address], [place], [place], [address] . tel: [phone] [facility], [address], [place], [address], [place] tel:[phone] [facility] Follow Up of left shoulder (chief complaint) Complete rupture of rotator cuff 4 Sanjay Nguyễn. [address], [place], [place], [address] . tel: [phone] Referring Provider: Mayur Bautista, [address], [place], [address]. tel:[phone] OFFICE/OUTPA TIENT VISIT EST [facility], [address], [place], [address], [place] tel:[phone] [facility] left shoulder pain (chief complaint) Disorders of bursae and tendons in shoulder region, unspecified 4 Sanjay Nguyễn. [address], [place], [place], [address] . tel:[phone] Referring Provider: Mayur Bautista, [address], [place], [address]. tel:[phone] OFFICE/OUTPA TIENT VISIT EST [facility], [address], [place], [address], [place] tel:[phone] [facility] Disorders of bursae and tendons in shoulder region, unspecified May-0 4-201 4 Sanjay Gopi. [address], [place], [place], [address] . tel:[phone] Referring Provider: Mayur Bautista, [address], [place], [address]. tel:[phone] OFFICE/OUTPA TIENT VISIT EST [facility], [address], [place], [address], [place] tel:[phone] [facility] Disorders of bursae and tendons in shoulder region, unspecified Dec-0 3-201 3 Sanjay Lopezall. [address], [place], [place], [address] . tel:[phone] Referring Provider: Mayur Bautista, [address], [place], [address]. tel:[phone] OFFICE/OUTPA TIENT VISIT EST [facility], [address], [place], [address], [place] tel:[phone] [facility] Disorders of bursae and tendons in shoulder region, unspecified 0 5-201 3 Sanjay Nguyễn. [address], [place], [place], [address] . tel:[phone] Referring Provider: Mayur Bautista, [address], [place], [address]. tel:[phone] OFFICE/OUTPA TIENT VISIT EST [facility], [address], [place], [address], [place] tel:[phone] [facility] Disorders of bursae and tendons in shoulder region, unspecified 3 Sanjay Nguyễn. [address], [place], [place], [address] . tel:[phone] Referring Provider: Mayur Bautista, [address], [place], [facility]. tel:[phone] OFFICE/OUTPA TIENT VISIT EST [facility], [address] [facility] [address], [place], [address], tel:[phone] [facility] Disorders of bursae and tendons in shoulder region, unspecified 3 Sanjay Nguyễn. [address], [place], [place], [address] . tel:[phone] Referring Provider: Mayur Bautista, [address], [place], [facility]. tel:[phone] OFFICE/OUTPA TIENT VISIT NEW [facility], [address], [place], [address], tel:[phone] [facility] right shoulder (chief complaint) Pain in joint involving shoulder regionHypertensio n, Unspecified 3 Sanjay Nguyễn. [address], [place], [place], [address] . tel:[phone] Referring Provider: Mayur Bautista, [address], [place], [facility]. tel:[phone] Family History Family Member Type Diagnosis Age [...] Information Instructions Date Instruction Additional Infor mation Take medication as d irected, call office with change in symptoms Related to Left leg pain Apply moist heat or cold 20 min per hour. Related to Left leg pain Home exercise [...] for specifi c education/instructions Activity as tolerated OTC anti-inflammatories (NSAIDs) See plan for specifi c education/instructions Activity as tolerated OTC anti-inflammatories (NSAIDs) OTC anti-inflammatories (NSAIDs) Activity as tolerated See plan for specifi c education/instructions See plan for specifi c education/instructions Activity as tolerated OTC anti-inflammatories (NSAIDs) See plan for specifi c education/instructions OTC medication -acetaminophen Activity as tolerated Assessments Type Assessment Date assessment Left knee pain, unspecified coal passer nicity assessment Left leg pain Patient Care Teams Name Effective Dates (start - stop) Status Members No Information
--- NOTE | ~2024-11-04 | CT_ITS ---
EXAMINATION: CT brain wo [place], 11/04/2024 12:38 CDT HISTORY: Altered mental status COMPARISON: No comparisons available. Technique: Axial images obtained of the brain without contrast. One or more of the following dose reduction techniques were used: automated exposure control, adjustment of the mA and/or kV according to patient size, use of iterative reconstruction technique. Findings: No acute infarct or parenchymal hemorrhage. No abnormal mass or mass effect. No midline shift. No extra-axial fluid collections. No hydrocephalus. Mastoid air cells unremarkable. Sinuses and orbits unremarkable. No acute fracture. No significant facial or scalp soft tissue swelling evident. No radiopaque foreign body is seen. Impression: 1.No acute intracranial abnormality. Reviewed, dictated and finalized at location A. Impression: 1.No acute intracranial abnormality.
--- NOTE | ~2024-11-04 | XR_ITS ---
EXAMINATION: XR chest 1V 11/04/2024 12:50 INDICATION: Altered mental status TECHNIQUE:A single frontal image of the chest was obtained. COMPARISON: 08/26/2024 FINDINGS: Heart is mildly enlarged. No pneumothorax. No pleural effusion. No free air the diaphragm. No focal pulmonary consolidation. IMPRESSION: 1: NO ACUTE CARDIOPULMONARY DISEASE. Reviewed, dictated and finalized at location Q.
--- OUTSIDE RECORDS SUMMARY | 2024-11-04 11:16 | XMS_ITS | Encounter Summary ---
Author Organization [employer] Address [address] [place] [address] Care Team Providers Care Conveyor Line Bakery Worker Name Role Phone Unavailable Primary Care [...] on file Legal Sex Male 2:54 AM MORTGAGE LOAN COORDINATOR Gender Identity Not on file Sexual Orientation Not on file documented as of this encounter Plan of Treatment Not on file documented as of this encounter Visit Diagnoses Not on filedocumented in this encounter
--- OUTSIDE RECORDS SUMMARY | 2024-11-04 11:16 | XMS_ITS | Encounter Summary ---
Author Organization [employer] Address [address] [place] [address] Care Team Providers Care Ship Pilot Dispatcher Name Role Phone Unavailable Primary Care Provider [...] on file Legal Sex Male 2:54 AM ZONING ENGINEER Gender Identity Not on file Sexual Orientation Not on file documented as of this encounter Plan of Treatment Not on file documented as of this encounter Visit Diagnoses Not on filedocumented in this encounter
--- OUTSIDE RECORDS SUMMARY | 2024-11-04 11:16 | XMS_ITS | Encounter Summary ---
Author Organization [employer] Address [address] [place] [address] Care Team Providers Care Last Inserter Name Role Phone Unavailable Primary Care Provider [...] on file Legal Sex Male 2:54 AM TERRA COTTA SETTER Gender Identity Not on file Sexual Orientation Not on file documented as of this encounter Plan of Treatment Not on file documented as of this encounter Visit Diagnoses Not on filedocumented in this encounter
--- OUTSIDE RECORDS SUMMARY | 2024-11-04 11:16 | XMS_ITS | Encounter Summary ---
Author Organization [employer] Address [address] [place] [address] Care Team Providers Care Manager Digital Name Role Phone Unavailable Primary Care Provider [...] on file Legal Sex Male 2:54 AM INTERNAL COMBUSTION ENGINEER Gender Identity Not on file Sexual Orientation Not on file documented as of this encounter Plan of Treatment Not on file documented as of this encounter Visit Diagnoses Not on filedocumented in this encounter
--- OUTSIDE RECORDS SUMMARY | 2024-11-04 11:16 | XMS_ITS | Clinical Summary ---
Author Organization [facility] [employer] Address [address] [place] [place] [address] Care Team Providers Care Library Assistant Name Role Phone Unavailable Primary Care Provider Unavailabl e Source Comments [facility] [employer],non-owned Affiliates and Associated Physician Practices is amultiple site organization consisting of ambulatory clinics and hospital sitesin [place], [place], [place] and [place]. This disclosure is being madepursuant to the Care Everywhere program and may not contain all information available regarding this patient. Last updated 17.[facility] Allergies No known active allergies Medications * [...] Comments Blood Pressure 120/78 02/19/2012 2:31 PM REFRIGERATOR CRATER Pulse - - Temperature - - Respiratory Rate - - Oxygen Saturation - - Inhaled Oxygen Concentration - - Weight 74.8 kg (165 lb) 02/19/2012 2:31 PM REFRIGERATOR CRATER Height 175.3 cm (5' 9) 02/19/2012 2:31 PM REFRIGERATOR CRATER Body Mass Index 24.37 02/19/2012 2:31 PM REFRIGERATOR CRATER Plan of Treatment Health Maintenance Due Date [...]
--- OUTSIDE RECORDS SUMMARY | 2024-11-04 11:16 | XMS_ITS | Encounter Summary ---
Author Organization [employer] Address [address] [place] [address] Care Team Providers Care Quality Rep Name Role Phone Unavailable Primary Care Provider [...] on file Legal Sex Male 2:54 AM HUMAN RESOURCES SUPPORT SPECIALIST Gender Identity Not on file Sexual Orientation Not on file documented as of this encounter Plan of Treatment Not on file documented as of this encounter Visit Diagnoses Not on filedocumented in this encounter
--- OUTSIDE RECORDS SUMMARY | 2024-11-04 11:16 | XMS_ITS | Clinical Summary ---
Author Organization [facility] Address [address] Alvaradon: Epic Prelude ADT EDILBERTOMARCI CASSIDYYUMIKO MATTHEWS [address] Care Team Providers Care Mechanotherapist Name Role Phone Unavailable Primary Care Provider Unavailabl e Social History Tobacco Use Types Packs/Day Years Used Date Smoking Tobacco: Never Assessed Sex and Gender Information Value Date Recorded Sex Assigned at Not on file Legal Sex Male 2:54 AM TIRE GROOVER Gender Identity Not on file Sexual Orientation [...]
--- OUTSIDE RECORDS SUMMARY | 2024-11-04 11:16 | XMS_ITS | Encounter Summary ---
Author Organization [employer] Address [address] [place] [address] Care Team Providers Care Envelope Maker Name Role Phone Unavailable Primary Care Provider [...] on file Legal Sex Male 2:54 AM SHOTGUN SHELL REPRINTING UNIT OPERATOR Gender Identity Not on file Sexual Orientation Not on file documented as of this encounter Plan of Treatment Not on file documented as of this encounter Visit Diagnoses Not on filedocumented in this encounter
--- OUTSIDE RECORDS SUMMARY | 2024-11-04 11:16 | XMS_ITS | Encounter Summary ---
Author Organization [employer] Address [address] [place] [address] Care Team Providers Care Peanut Vendor Name Role Phone Unavailable Primary Care Provider [...] on file Legal Sex Male 2:54 AM ASSOCIATE PROFESSOR OF ARCHAEOLOGY Gender Identity Not on file Sexual Orientation Not on file documented as of this encounter Plan of Treatment Not on file documented as of this encounter Visit Diagnoses Not on filedocumented in this encounter
[2024-11-04 11:36] VITALS: BP 180/74; PULSE 74; RESP 18; TEMP 36.6; O2SAT 100
--- NOTE | 2024-11-04 12:18 | ED_ITS ---
HPI - Weakness General Chief complaint: Weakness Stated complaint: weak, dizzy, numbness to leonard feet Time Seen by Provider: 11/04/24 12:04 Source: patient Mode of arrival: ambulatory Limitations: no limitations History of Present Illness HPI Narrative: 84 years old white male came from home with a friend of his complaining of not feeling well for the last 2 months, been seen by his family physician numerous of time for the same complaint. Last visit was yesterday. Patient is telling me that he been feeling nervous jittery inside and shaky outside which comes and goes, lives alone. He denies any fever, chills, vomiting, chest pain or shortness of breath or headache or focal neuro deficit. Patient is telling me that he would like to see his family physician but every time he go to his office sees his nurse practitioner which is not happy with Currently patient main complaint is very nervous, his telling me that he have anti anxiety medication at home which she does not work Related Data Home Medications ?Medication ?Instructions ?Recorded ?Confirmed ?Last Taken ?Type acetaminophen 325 mg tablet 500 mg PO Q4-6H PRN Pain 0 05/05/22 11/03/24 Unknown History atorvastatin 40 mg tablet 40 mg PO DAILY 05/05/2210/08 Unknown History lisinopril 10 1 tablet PO DAILY 08/03/24 0 11/03/24 Unknown History mg-hydrochlorothiazide 12.5 mg tablet omeprazole 40 mg capsule,delayed 40 mg PO BID 11/03/24 11/03/24 Unknown History release Allergies Allergy/AdvReac Type Severity Reaction Status Date / Time No Known Allergies Allergy Verified 11/03/24 11:07 Review of Systems 2 Review of Systems: All systems reviewed & are unremarkable except as noted in HPI and below PMFSH Past Medical History Medical History Gastritis, Helicobacter pylori Essential (primary) hypertension Hyperlipidemia Panic disorder [episodic paroxysmal anxiety] Rotator cuff arthropathy Surgical History Surgical History History of lumbar discectomy (~2003) History of lumbar discectomy (~2005) H/O colonoscopy (~2007) History of esophagogastroduodenoscopy (EGD) H/O prostate biopsy Family History Family History Father Family history of malignant neoplasm Patient's father is Mother Family history of malignant neoplasm Patient's mother is Social History Social History Smoking packs per day: 0.5 Smoking cigarettes per day: 10.0 Years smoked: 20 Smoking pack-years: 10.00 Smoking status: Former smoker Tobacco type: cigarettes Second hand tobacco smoke exposure: Yes Smoking end date: 03/09/84 Alcohol intake: former Alcohol use details: beer Substance use: never Substance use type: does not use Lack of Transportation: No Lack of Food: Never True Current Housing: I Have Housing Concerned About Future Housing: No Difficulty Paying Gas/Electric Bills: No Difficulty Paying for Meds: No Currently Unemployed: No Education: High School Diploma/GED Difficulty w/ Childcare or Family Care: No Living arrangements: alone Gender identity (if verbalized by the patient): Male Spiritual care concerns: No Exam 2 Narrative: General appearance: Well-developed, well-nourished, very angry, speaks loud then ask for apology because he can not control his anger Skin: Normal color Head: Normocephalic, nontraumatic Eyes: Clear conjunctiva ENT: Oropharynx normal, ears normal, nose normal Neck: Supple, nontender Chest and respiratory: Airway patent, no respiratory distress, no accessory muscle use Heart: Regular rate/rhythm Abdomen: Soft, nontender, no organomegaly, quiet bowel sounds Vascular: Normal peripheral pulses, normal capillary refill. Musculoskeletal: Normal range of motion, nontender back Neurologic: Alert and oriented ?3, DOG BOARDER is normal as tested, no gross motor deficit Course Vital Signs Vital signs: Vital Signs Temperature 36.6 C 11/04/24 11:36 Pulse Rate 74 11/04/24 11:36 Respiratory Rate 18 11/04/24 11:36 Blood Pressure 180/74 H 11/04/24 11:36 Pulse Oximetry 100 11/04/24 11:36 Oxygen Delivery Room Air 11/04/24 11:36 Temperature 36.6 C 11/04/24 11:36 Pulse Rate 74 11/04/24 11:36 Respiratory Rate 18 11/04/24 11:36 Blood Pressure 180/74 H 11/04/24 11:36 Pulse Oximetry 100 11/04/24 11:36 Oxygen Delivery Room Air 11/04/24 11:36 MDM - Weakness MDM Narrative Medical decision making narrative: Patient came with anxiety like symptoms Vital signs showing blood pressure 180/74 otherwise within normal limit Physical examination showing a patient with intermittent spells of anger otherwise insignificant Differential diagnosis anxiety like symptoms, insomnia, loneliness, noncompliance with his anxiety medication Blood workup today includes CBC, CMP, lipase, troponin showed no significant abnormality Chest x-ray showed no significant abnormality EKG on arrival showed no significant abnormality to explain patient condition. In the ED patient received 5 mg of Valium IV with significant improvement Diagnosis major depression with anxiety like symptoms Patient was advised to follow-up with his family physician as soon as possible for possible anti anxiety/depression medication change. The pt was discharged to home.the pt,s condition upon discharge was fair,education was provided to the pt in reference to the final impression,discharge study results,treatment,prognosis and need for follow up . Differential Diagnosis Differential diagnosis: Likely other (As above) Medical Records Attestation: I reviewed the patient's medical records. Lab Data Attestation: I reviewed the patient's lab results. 11/04/24 12:36 11/04/24 12:36 Labs: Lab Results 11/04/24 11/04/24 Range/Units 11:43 12:36 WBC 6.0 (4.5-10.0) K/mm3 RBC 4.29 L (4.6-6.20) M/mm3 Hgb 13.2 L (14.0-18.0) g/dL Hct 39.4 L (42.0-52.0) % MCV 91.8 (80-100) fl MCH 30.8 (26-34) pg MCHC 33.5 (32-36) g/dl RDW 13.7 (11.5-14.5) % Plt Count 222 (150-375) k/mm3 MPV 9.3 (7.4-10.4) fl Immature Gran % (Auto) 0.5 (0-0.5) % Neut % (Auto) 63.4 (45.5-73.1) % Lymph % (Auto) 28.0 (18.3-44.2) % Bucks % (Auto) 7.3 (2.6-8.5) % Eos % (Auto) 0.5 (0-4.4) % Baso % (Auto) 0.3 (0.2-1.2) % Lymph # (Auto) 1.68 (0.9-3.2) K/mm3 Bucks # (Auto) 0.4 (0.1-0.6) K/mm3 Eos # (Auto) 0.0 (0-0.3) K/mm3 Baso # (Auto) 0.0 (0.0-0.1) K/mm3 Abs Immat Gran (auto) 0.03 (0.00-0.031) K/mm3 Absolute Neuts (auto) 3.8 (1.3-6.7) K/mm3 Absolute Nucleated RBC 0.000 (0.0-0.012) K/mm3 Nucleated RBC % 0.0 (0.0-0.2) % PT 13.4 (11.1-14.7) Seconds INR 1.0 APTT 27.5 (22.3-36.8) Seconds Sodium 137 (137-145) mmol/L Potassium 3.7 (3.4-5.0) mmol/L Chloride 105 (98-107) mmol/L Carbon Dioxide 24 (22-30) mmol/L Anion Gap 8 (4-12) mmol/L BUN 14 (9-20) mg/dL Creatinine 0.85 (0.7-1.3) mg/dL Estim Creat Clear Calc Not Reportable Estimated GFR > 60 (59 - ) Glucose 101 (65-110) mg/dL POC Capillary Glucose 118 H (65-105) mg/dl Calcium 9.4 (8.4-10.2) mg/dL Total Bilirubin 0.8 (0.2-1.3) mg/dL AST 26 (17-59) U/L ALT 18 (6-50) U/L Alkaline Phosphatase 77 (38-126) U/L Total Creatine Kinase Pending Troponin I 0.015 (0.000-0.034) ng/mL Total Protein 7.0 (6.3-8.2) g/dL Albumin 4.2 (3.5-5.1) g/dL Urine Color Yellow (Yellow) Urine Appearance Clear (Clear) Urine pH 8.5 (5.0-9.0) Ur Specific [place] 1.012 (1.001-1.035) Urine Protein Negative (Negative) mg/dL Urine Glucose (UA) Negative (Negative) mg/dL Urine Ketones Negative (Negative) mg/dL Ur Blood (Man) Negative (Negative) Urine Nitrate Negative (Negative) Urine Bilirubin Negative (Negative) Urine Urobilinogen 0.2 (<2.0) mg/dL Leukocyte Esterase Rfl Negative (Negative) BRIAN/UL Urine Opiates Screen Negative (Negative) Urine Methadone Screen Negative (Negative) Ur Barbiturates Screen Negative (Negative) Ur Phencyclidine Scrn Negative (Negative) Ur Amphetamine Screen Negative (Negative) U Benzodiazepines Scrn Negative (Negative) Urine Cocaine Screen Negative (Negative) U Cannabinoids Screen Negative (Negative) Ethyl Alcohol < 10 (<10) mg/dL Imaging Data Radiologist's impression: Impressions Head CT 11/04/24 12:47 Impression: 1.No acute intracranial abnormality. Chest X-Ray 11/04/24 12:51 IMPRESSION: 1: NO ACUTE CARDIOPULMONARY DISEASE. ECG Data EKG #1: Attestation: I personally reviewed and interpreted this ECG as follows: ECG completion date: 11/04/24 Interpretation: Normal sinus rhythm at 62 beats per minute, left ventricular hypertrophy, borderline T-wave abnormality, borderline EKG, compared to EKG on 2024 no significant change Critical Care Time Critical Care Time Critical Care Time: No Discharge Plan Discharge Clinical Impression: Anxiety-like symptoms Patient Disposition: Home Condition: Stable Instructions: Stress (ED) Additional Instructions: Return if symptoms are worsening , call your family physician for appointment, take Tylenol as as needed for aches and pain, continue home medications. Patient Language: Sammarinese Prescriptions: No Action lisinopril-hydrochlorothiazide 10-12.5 mg tablet 1 tablet PO DAILY hydroxyzine HCl 50 mg tablet 50 mg PO TID PRN (Reason: anxiety) Qty: 90 1RF ciprofloxacin HCl 500 mg tablet 500 mg PO Q12H 5 Days Qty: 10 0RF omeprazole 40 mg capsule,delayed release(DR/EC) 40 mg PO BID atorvastatin 40 mg tablet 40 mg PO DAILY polyethylene glycol 3350 [Miralax] 17 gram/dose powder 17 g PO DAILY PRN (Reason: constipation) Qty: 510 1RF acetaminophen 325 mg tablet 500 mg PO Q4-6H PRN (Reason: Pain) trazodone 50 mg tablet 50 mg PO QHS PRN (Reason: insomnia) Qty: 90 0RF Follow-up/Referrals: Sonal Dolan APRN [Primary Care Provider, Internal Medicine]
--- NOTE | 2024-11-04 12:19 | ECG_ITS ---
Test Date: 2024-11-04 12:29:11 Measurements Intervals [place] Rate: 62 P: 37 IA: 174 QRS: -10 QRSD: 96 T: -9 QT: 433 QTc: 441 Interpretive Statements SINUS RHYTHM LEFT VENTRICULAR HYPERTROPHY BORDERLINE T WAVE ABNORMALITY- INFERIOR LEADS BASELINE ARTIFACT- I, II, III, AVR, AVL, AVF BORDERLINE ECG Compared to ECG 08/26/2024 13:54:54 NO SIGNIFICANT CHANGE Electronically Signed On 11-04-2024 13:28:31 CDT by Armando Jacques D.O.
--- OUTSIDE RECORDS SUMMARY | 2024-11-04 12:22 | XMS_ITS | Encounter Summary ---
Author Organization [employer] Address [address] [place] [address] Care Team Providers Care Parking Lot Attendant Name Role Phone Unavailable Primary Care Provider [...] on file Legal Sex Male 2:54 AM COPYRIGHT MANAGER Gender Identity Not on file Sexual Orientation Not on file documented as of this encounter Plan of Treatment Not on file documented as of this encounter Visit Diagnoses Not on filedocumented in this encounter
--- OUTSIDE RECORDS SUMMARY | 2024-11-04 12:22 | XMS_ITS | Encounter Summary ---
Author Organization [employer] Address [address] [place] [address] Care Team Providers Care Correctional Substance Abuse Counselor Name Role Phone Unavailable Primary Care Provider [...] on file Legal Sex Male 2:54 AM CAKE ICER AND PACKER Gender Identity Not on file Sexual Orientation Not on file documented as of this encounter Plan of Treatment Not on file documented as of this encounter Visit Diagnoses Not on filedocumented in this encounter
--- OUTSIDE RECORDS SUMMARY | 2024-11-04 12:22 | XMS_ITS | Encounter Summary ---
Author Organization [employer] Address [address] [place] [address] Care Team Providers Care Director Of Counterintelligence Name Role Phone Unavailable Primary Care Provider [...] on file Legal Sex Male 2:54 AM DIRECTOR OF PLANNING Gender Identity Not on file Sexual Orientation Not on file documented as of this encounter Plan of Treatment Not on file documented as of this encounter Visit Diagnoses Not on filedocumented in this encounter
--- OUTSIDE RECORDS SUMMARY | 2024-11-04 12:22 | XMS_ITS | Clinical Summary ---
Author Organization [facility] [employer] Address [address] [place] [address] Care Team Providers Care Fruit Worker Name Role Phone Unavailable Primary Care Provider Unavailabl e Source Comments [facility] [employer],non-owned Affiliates and Associated Physician Practices is amultiple site organization consisting of ambulatory clinics and hospital sitesin [place], [place], [place] and [place]. This disclosure is being madepursuant to the Care Everywhere program and may not contain all information available regarding this patient. 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
--- OUTSIDE RECORDS SUMMARY | 2024-11-04 12:22 | XMS_ITS | Encounter Summary ---
Author Organization [employer] Address 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
--- OUTSIDE RECORDS SUMMARY | 2024-11-04 12:22 | XMS_ITS | Clinical Summary ---
Author Organization [employer] [facility] Address [address] 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
--- OUTSIDE RECORDS SUMMARY | 2024-11-04 12:22 | XMS_ITS | Encounter Summary ---
Author Organization [employer] Address 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
--- OUTSIDE RECORDS SUMMARY | 2024-11-04 12:22 | XMS_ITS | Encounter Summary ---
Author Organization [employer] Address 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
--- OUTSIDE RECORDS SUMMARY | 2024-11-04 12:22 | XMS_ITS | Encounter Summary ---
Author Organization [email or web address] Address 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
[2024-11-04 12:50] LABS: Hematocrit 39.4 % (42.0-52.0); Hemoglobin 13.2 g/dL (14.0-18.0); Immature Granulocyte Percent A 0.5 % (0-0.5); Lymphocytes Absolute Auto 1.68 K/mm3 (0.9-3.2); Mean Corpuscular HGB Conc 33.5 g/dl (32-36); Mean Corpuscular Hemoglobin 30.8 pg (26-34); Mean Corpuscular Volume 91.8 fl (80-100); Nucleated Red Blood Cells Absolute Auto 0.000 K/mm3 (0.0-0.012); Nucleated Red Blood Cells Perc 0.0 % (0.0-0.2); Platelet Count Result 222 k/mm3 (150-375); Red Blood Count 4.29 M/mm3 (4.6-6.20); White Blood Count 6.0 K/mm3 (4.5-10.0)
[2024-11-04 12:56] LABS: Add Urine Microscopic? NO; Appearance Urine Clear (Clear); Glucose Urine UA Negative (Negative); Leukocyte Esterase Ur Negative LEU/UL (Negative); Nitrate Urine Negative (Negative); Specific Grav Ur 1.012 (1.001-1.035)
[2024-11-04 12:59] LABS: Alanine Aminotransferase 18 U/L (6-50); Albumin Level 4.2 g/dL (3.5-5.1); Alkaline Phosphatase 77 U/L (38-126); Anion Gap 8 mmol/L (4-12); Aspartate Amino Transferase 26 U/L (17-59); Bilirubin,Total 0.8 mg/dL (0.2-1.3); Blood Urea Nitrogen 14 mg/dL (9-20); Calcium 9.4 mg/dL (8.4-10.2); Carbon Dioxide 24 mmol/L (22-30); Chloride 105 mmol/L (98-107); Estimated Glomerular Filt Rate > 60; Glucose 101 mg/dL (65-110); Potassium 3.7 mmol/L (3.4-5.0); Sodium 137 mmol/L (137-145); Total Protein 7.0 g/dL (6.3-8.2)
[2024-11-04 13:02] LABS: INR 1.0; Partial Thromboplastin Time 27.5 Seconds (22.3-36.8); Prothrombin Time 13.4 Seconds (11.1-14.7)
[2024-11-04 13:11] LABS: Troponin I 0.015 ng/mL (0.000-0.034)
[2024-11-04 13:21] LABS: Cannabinoid Screen Urine Negative (Negative)
[2024-11-04 13:41] LABS: Creatine Kinase 59 U/L (55-170)
[2024-11-04] MEDS: diazePAM INJ (*CRX) 10 MG/2 ML SYRINGE 5 MG IV PUSH (13:56)
== END 2024-11-04 14:55 | disposition home or self-care (01) ==
PROVIDERS: Emergency Provider Emergency Medicine; PCP Nurse Practitioner Family
DX: F41.9 Anxiety disorder, unspecified (principal); I10 Essential (primary) hypertension; E78.5 Hyperlipidemia, unspecified; F41.0 Panic disorder [episodic paroxysmal anxiety]; Z87.891 Personal history of nicotine dependence; Z79.899 Other long term (current) drug therapy; R94.31 Abnormal electrocardiogram [ECG] [EKG]; I51.7 Cardiomegaly
CPT/HCPCS: 36415; 70450; 71045; 80053; 80307; 81003; 82077; 82550; 82948; 84484; 85025; 85610; 85730; 93005; 96374; 99284; J3360